=== PATIENT | male | born 1965 | race African-American/Black ===

== ENCOUNTER 2022-05-07 21:02 | Inpatient (IN) | payer BC, MEDICARE ==
[~2022-05-07] VITALS: Ht 182.9 cm; Wt 89.8 kg
[~2022-05-07 21:02] MED LIST: ATOR40TA70 MT; DEXT1CAP3 MT; ESCI5SOL2 MT; FELO10TA45 MT; LISI20TA31 MT; TAMS0.4C31 MT
[2022-05-07] MEDS ORDERED: CEFTRIAXONE 1 G PREMIX 50 ML IV NR (22:00)
[2022-05-07] MEDS ORDERED: METRONIDAZOLE 500 MG PREMIX 100 ML IV ONE (23:15)
[2022-05-07] MEDS: DOXYCYCLINE 100 MG in DEXT 5% WATER 100 ML IV SCH (23:45)
[2022-05-08] VITALS (16 sets, daily range): BP systolic 85–153; BP diastolic 60–123
[2022-05-08] MEDS ORDERED: ROCURONIUM BROMIDE 10MG/ML VIAL 5ML IV ONE
[2022-05-08] MEDS ORDERED: PROPOFOL 10MG/ML 100ML 100 ML IV ONE
[2022-05-08] MEDS ORDERED: FENTANYL 2500MCG/250ML PMX 250 ML IV ONE
[2022-05-08] MEDS ORDERED: KETAMINE HCL 50 MG/ML 10ML IV ONE
[2022-05-08] MEDS: KETAMINE HCL 50 MG/ML 10ML IV NR ×2 (00:02→01:13)
[2022-05-08] MEDS ORDERED: FENTANYL 2500MCG/250ML PMX 250 ML IV NR (00:15)
[2022-05-08] MEDS ORDERED: PROPOFOL 10MG/ML 100ML 100 ML IV NR ×2 (00:15)
[2022-05-08 00:19] LABS: HEMATOCRIT. 46.4 % (42.0-52.0); HEMOGLOBIN. 14.9 g/dL (14.0-18.0); MEAN CORPUSCULAR HEMOGLOBIN 27.3 pg (28.0-32.0); MEAN CORPUSCULAR VOLUME 85.3 fL (80.0-94.0); MEAN PLATELET VOLUME 7.3 fl (7.4-10.4); PLATELET 385 x1000/uL (130-400); RED BLOOD CELL COUNT 5.44 mill/uL (4.7-6.1); RED CELL DISTRIBUTION WIDTH 14.2 % (11.6-14.6)
[2022-05-08 00:34] LABS: CHLORIDE 105 mEq/L (98-107)
[2022-05-08] MEDS: DOXYCYCLINE 100 MG in DEXT 5% WATER 100 ML IV SCH ×2 (01:45→03:00)
[2022-05-08 02:41] LABS: BG BASE EXCESS -3.2 mmol/L (-2.0-2.0); BG CARBOXYHEMOGLOBIN 0.5 % (0.5-1.5); BG DEOXYHEMOGLOBIN 0.6 % (0.0-5.0); BG FRACTION INSPIRED OXYGEN 70; BG HCO3 ACT 20.9 mmol/L (22.0-26.0); BG METHEMOGLOBIN 0.4 % (0.0-1.5); BG OXYGEN SATURATION 99.4 % (92.0-98.5); BG OXYHEMOGLOBIN 98.5 % (94.0-97.0); BG PCO2 34.8 mmHg (35.0-45.0); BG PH 7.396 (7.350-7.450); BG PO2 214.6 mmHg (75.0-100.0); BG SAMPLE SITE RIGHT RADIAL; BG TOTAL HEMOGLOBIN 15.6 g/dL (12.0-18.0); BG VENT MODE VENT - AC
[2022-05-08 04:14] LABS: PLATELET ESTIMATE NORMAL
[2022-05-08] MEDS ORDERED: IOHEXOL-350 100 ML BOTTLE ONE (09:25)
[2022-05-08] MEDS: IPRATROPIUM/ALBUTEROL 0.5-3(2.5)MG/3ML NEB HHN SCH ×2 (11:38→20:41)
[2022-05-08] MEDS ORDERED: PIPERACILLIN/TAZ 3.375G PREMIX 50 ML IV SCH (12:00)
[2022-05-08] MEDS: ASPIRIN 81MG TABLET PO SCH (12:31)
[2022-05-08] MEDS: PANTOPRAZOLE SODIUM 40 MG/VIAL IV SCH (12:31)
[2022-05-08 12:42] LABS: CLARITY URINE CLEAR (CLEAR); COLOR URINE DARK YELLOW (YELLOW); KETONES URINE 1+ (NEGATIVE); LEUKOCYTE ESTERASE URINE NEGATIVE (NEGATIVE); NITRITE URINE NEGATIVE (NEGATIVE); OCCULT BLOOD URINE 2+ (NEGATIVE); PH URINE 5.5 (4.5-8.0); PROTEIN URINE 2+ (NEGATIVE); SPECIFIC GRAVITY URINE 1.026 (1.005-1.030)
[2022-05-08 13:04] LABS: *AMPHETAMINES SCREEN URINE NEGATIVE (NEGATIVE); *BARBITURATES SCREEN URINE NEGATIVE (NEGATIVE); *BENZODIAZEPINES SCREEN URINE NEGATIVE (NEGATIVE); *COCAINE SCREEN URINE NEGATIVE (NEGATIVE); CANNABINOID URINE SCREEN NEGATIVE (NEGATIVE); METHADONE URINE SCREEN NEGATIVE (NEGATIVE); OPIATES URINE SCREEN NEGATIVE (NEGATIVE); PHENCYCLIDINE URINE SCREEN NEGATIVE (NEGATIVE)
[2022-05-08] MEDS ORDERED: PROPOFOL 10MG/ML 100ML 100 ML IV PRN (15:30)
[2022-05-08] MEDS ORDERED: FENTANYL 2500MCG/250ML PMX 250 ML IV PRN (15:30)
[2022-05-08] MEDS ORDERED: KCL 20MEQ/100ML PREMIX 100 ML IV NR (16:00)
[2022-05-08] MEDS ORDERED: MIDODRINE HCL 5MG TABLET PO SCH (17:00)
[2022-05-08 18:26] LABS: BG BASE EXCESS -3.7 mmol/L (-2.0-2.0); BG CARBOXYHEMOGLOBIN 0.4 % (0.5-1.5); BG FRACTION INSPIRED OXYGEN 40; BG HCO3 ACT 20.6 mmol/L (22.0-26.0); BG METHEMOGLOBIN 0.3 % (0.0-1.5); BG OXYHEMOGLOBIN 97.3 % (94.0-97.0); BG PCO2 35.3 mmHg (35.0-45.0); BG PH 7.385 (7.350-7.450); BG PO2 105.1 mmHg (75.0-100.0); BG SAMPLE SITE RIGHT RADIAL; BG TOTAL HEMOGLOBIN 13.5 g/dL (12.0-18.0); BG VENT MODE VENT - AC
[2022-05-09] VITALS (74 sets, daily range): BP systolic 91–177; BP diastolic 64–126
[2022-05-09] MEDS: PIPERACILLIN/TAZOBACTAM 3.375G in DEXT 5% WATER 50ML IV SCH ×4 (04:40→21:42)
[2022-05-09] MEDS: MIDODRINE HCL 5MG TABLET PO SCH ×4 (04:41→17:00)
[2022-05-09 05:40] LABS: BASOPHILS % 0.3 % (0.0-2.0); EOSINOPHILS % 0.5 % (0.0-5.0); HEMATOCRIT. 37.7 % (42.0-52.0); HEMOGLOBIN. 12.4 g/dL (14.0-18.0); LYMPHOCYTES % 7.9 % (20.0-50.0); MEAN CORPUSCULAR HEMOGLOBIN 27.9 pg (28.0-32.0); MEAN CORPUSCULAR VOLUME 84.6 fL (80.0-94.0); MEAN PLATELET VOLUME 7.3 fl (7.4-10.4); MONOCYTES % 3.4 % (2.0-8.0); NEUTROPHILS % 87.9 % (40.0-76.0); PLATELET 270 x1000/uL (130-400); RED BLOOD CELL COUNT 4.45 mill/uL (4.7-6.1); RED CELL DISTRIBUTION WIDTH 14.4 % (11.6-14.6)
[2022-05-09] MEDS ORDERED: ASPI-1497 PO (07:23)
[2022-05-09] MEDS ORDERED: PROPOFOL 10MG/ML 100ML 100 ML IV PRN ×2 (07:36→12:30)
[2022-05-09] MEDS: PANTOPRAZOLE SODIUM 40 MG/VIAL IV SCH (08:18)
[2022-05-09] MEDS: ASPIRIN 81MG TABLET PO SCH (08:18)
[2022-05-09] MEDS: IPRATROPIUM/ALBUTEROL 0.5-3(2.5)MG/3ML NEB HHN SCH ×4 (08:23→20:40)
[2022-05-09 08:48] LABS: BG BASE EXCESS -3.8 mmol/L (-2.0-2.0); BG CARBOXYHEMOGLOBIN 0.3 % (0.5-1.5); BG DEOXYHEMOGLOBIN 1.4 % (0.0-5.0); BG FRACTION INSPIRED OXYGEN 40; BG HCO3 ACT 21.8 mmol/L (22.0-26.0); BG METHEMOGLOBIN 0.4 % (0.0-1.5); BG OXYGEN SATURATION 98.6 % (92.0-98.5); BG OXYHEMOGLOBIN 97.9 % (94.0-97.0); BG PCO2 41.4 mmHg (35.0-45.0); BG PH 7.339 (7.350-7.450); BG PO2 137.8 mmHg (75.0-100.0); BG SAMPLE SITE RIGHT RADIAL; BG TOTAL HEMOGLOBIN 13.1 g/dL (12.0-18.0); BG VENT MODE VENT - AC
[2022-05-09] MEDS: SODIUM CHLORIDE 0.45% 1,000 ML IV SCH ×2 (10:43→21:43)
[2022-05-09] MEDS: MIDAZOLAM HCL 5 MG/5 ML VIAL IV PRN (23:40)
[2022-05-10] VITALS (80 sets, daily range): BP systolic 114–159; BP diastolic 74–104
[2022-05-10] MEDS: IPRATROPIUM/ALBUTEROL 0.5-3(2.5)MG/3ML NEB HHN SCH ×4 (02:06→20:28)
[2022-05-10] MEDS: MIDAZOLAM HCL 5 MG/5 ML VIAL IV PRN ×2 (04:16→13:44)
[2022-05-10] MEDS: PIPERACILLIN/TAZOBACTAM 3.375G in DEXT 5% WATER 50ML IV SCH ×3 (05:07→22:14)
[2022-05-10 05:53] LABS: HEMATOCRIT. 36.3 % (42.0-52.0); MEAN CORPUSCULAR VOLUME 84.9 fL (80.0-94.0); MEAN PLATELET VOLUME 7.4 fl (7.4-10.4); PLATELET 241 x1000/uL (130-400); RED BLOOD CELL COUNT 4.27 mill/uL (4.7-6.1)
[2022-05-10 06:12] LABS: CHLORIDE 106 mEq/L (98-107)
[2022-05-10 07:24] LABS: BG BASE EXCESS -4.1 mmol/L (-2.0-2.0); BG CARBOXYHEMOGLOBIN 0.4 % (0.5-1.5); BG HCO3 ACT 20.9 mmol/L (22.0-26.0); BG METHEMOGLOBIN 0.4 % (0.0-1.5); BG OXYHEMOGLOBIN 98.2 % (94.0-97.0); BG PCO2 38.1 mmHg (35.0-45.0); BG PH 7.357 (7.350-7.450); BG PO2 153.2 mmHg (75.0-100.0); BG SAMPLE SITE RIGHT RADIAL; BG TOTAL HEMOGLOBIN 12.5 g/dL (12.0-18.0); BG VENT MODE VENT - AC
[2022-05-10] MEDS: MIDODRINE HCL 5MG TABLET PO SCH ×3 (09:00→17:00)
[2022-05-10 09:46] LABS: BG CARBOXYHEMOGLOBIN 0.1 % (0.5-1.5); BG DEOXYHEMOGLOBIN 1.2 % (0.0-5.0); BG HCO3 ACT 21.3 mmol/L (22.0-26.0); BG METHEMOGLOBIN 0.4 % (0.0-1.5); BG OXYGEN SATURATION 98.8 % (92.0-98.5); BG OXYHEMOGLOBIN 98.3 % (94.0-97.0); BG PCO2 39.7 mmHg (35.0-45.0); BG PH 7.347 (7.350-7.450); BG PO2 145.1 mmHg (75.0-100.0); BG SAMPLE SITE RIGHT RADIAL; BG TOTAL HEMOGLOBIN 12.1 g/dL (12.0-18.0); BG VENT MODE VENT - CPAP
[2022-05-10] MEDS: ASPIRIN 81MG TABLET PO SCH (09:52)
[2022-05-10] MEDS: PANTOPRAZOLE SODIUM 40 MG/VIAL IV SCH (09:52)
[2022-05-10] MEDS: SODIUM CHLORIDE 0.45% 1,000 ML IV SCH (10:20)
[2022-05-10 11:55] LABS: PLATELET ESTIMATE NORMAL
[2022-05-11] VITALS (50 sets, daily range): BP systolic 116–180; BP diastolic 78–137
[2022-05-11] MEDS: SODIUM CHLORIDE 0.45% 1,000 ML IV SCH ×2 (01:31→14:50)
[2022-05-11] MEDS: IPRATROPIUM/ALBUTEROL 0.5-3(2.5)MG/3ML NEB HHN SCH ×4 (02:20→20:09)
[2022-05-11 06:45] LABS: BASOPHILS % 0.4 % (0.0-2.0); EOSINOPHILS % 0.9 % (0.0-5.0); HEMATOCRIT. 35.5 % (42.0-52.0); HEMOGLOBIN. 11.6 g/dL (14.0-18.0); LYMPHOCYTES % 9.1 % (20.0-50.0); MEAN CORPUSCULAR HEMOGLOBIN 27.7 pg (28.0-32.0); MEAN CORPUSCULAR VOLUME 84.8 fL (80.0-94.0); MEAN PLATELET VOLUME 7.4 fl (7.4-10.4); MONOCYTES % 4.7 % (2.0-8.0); NEUTROPHILS % 84.9 % (40.0-76.0); PLATELET 237 x1000/uL (130-400); RED BLOOD CELL COUNT 4.18 mill/uL (4.7-6.1); RED CELL DISTRIBUTION WIDTH 14.3 % (11.6-14.6)
[2022-05-11 07:24] LABS: CHLORIDE 103 mEq/L (98-107)
[2022-05-11 08:49] LABS: BG CARBOXYHEMOGLOBIN 0.3 % (0.5-1.5); BG FRACTION INSPIRED OXYGEN 40; BG METHEMOGLOBIN 0.3 % (0.0-1.5); BG OXYHEMOGLOBIN 98.4 % (94.0-97.0); BG PCO2 40.5 mmHg (35.0-45.0); BG PH 7.373 (7.350-7.450); BG PO2 171.3 mmHg (75.0-100.0); BG SAMPLE SITE RIGHT RADIAL; BG TOTAL HEMOGLOBIN 12.3 g/dL (12.0-18.0); BG VENT MODE VENT - AC
[2022-05-11] MEDS: MIDODRINE HCL 5MG TABLET PO SCH ×3 (09:00→17:00)
[2022-05-11] MEDS: PANTOPRAZOLE SODIUM 40 MG/VIAL IV SCH (09:02)
[2022-05-11] MEDS: ASPIRIN 81MG TABLET PO SCH (09:02)
[2022-05-11] MEDS: PIPERACILLIN/TAZOBACTAM 3.375G in DEXT 5% WATER 50ML IV SCH ×3 (09:02→21:38)
[2022-05-11] MEDS ORDERED: MAGNESIUM 1 G PREMIX 100 ML IV ONE (09:30)
[2022-05-11 11:29] LABS: BG BASE EXCESS -1.4 mmol/L (-2.0-2.0); BG CARBOXYHEMOGLOBIN 0.2 % (0.5-1.5); BG DEOXYHEMOGLOBIN 0.9 % (0.0-5.0); BG FRACTION INSPIRED OXYGEN 40; BG HCO3 ACT 23.4 mmol/L (22.0-26.0); BG METHEMOGLOBIN 0.4 % (0.0-1.5); BG OXYGEN SATURATION 99.1 % (92.0-98.5); BG OXYHEMOGLOBIN 98.5 % (94.0-97.0); BG PCO2 39.7 mmHg (35.0-45.0); BG PH 7.389 (7.350-7.450); BG PO2 169.8 mmHg (75.0-100.0); BG SAMPLE SITE RIGHT RADIAL; BG TOTAL HEMOGLOBIN 12.2 g/dL (12.0-18.0); BG VENT MODE VENT - CPAP
[2022-05-11] MEDS ORDERED: RACEPINEPHRINE 2.25% 0.5ML NEB VIAL HHN NR (14:30)
[2022-05-11] MEDS: METHYLPREDNISOLONE SOD SUCC 40 MG/ML VIAL IV SCH ×2 (14:43→21:37)
[2022-05-11] MEDS: DEXT 5%/0.45% NACL 1000ML 1,000 ML IV SCH (21:02)
[2022-05-11] MEDS: MIDAZOLAM HCL 5 MG/5 ML VIAL IV PRN (21:23)
[2022-05-12] VITALS (66 sets, daily range): BP systolic 99–207; BP diastolic 66–182
[2022-05-12 01:56] LABS: BG CARBOXYHEMOGLOBIN 0.2 % (0.5-1.5); BG FRACTION INSPIRED OXYGEN 410; BG HCO3 ACT 20.5 mmol/L (22.0-26.0); BG METHEMOGLOBIN 0.4 % (0.0-1.5); BG OXYHEMOGLOBIN 98.4 % (94.0-97.0); BG PCO2 39.9 mmHg (35.0-45.0); BG PH 7.329 (7.350-7.450); BG PO2 158.6 mmHg (75.0-100.0); BG TOTAL HEMOGLOBIN 13.6 g/dL (12.0-18.0); BG VENT MODE MASK - BIPAP
[2022-05-12] MEDS: MIDAZOLAM HCL 5 MG/5 ML VIAL IV PRN ×3 (02:09→07:46)
[2022-05-12] MEDS: IPRATROPIUM/ALBUTEROL 0.5-3(2.5)MG/3ML NEB HHN SCH ×4 (02:10→20:41)
[2022-05-12] MEDS: HYDRALAZINE 20MG/ML VIAL IV PRN ×2 (03:28→12:41)
[2022-05-12] MEDS: METHYLPREDNISOLONE SOD SUCC 40 MG/ML VIAL IV SCH ×3 (05:35→21:37)
[2022-05-12 05:36] LABS: HEMATOCRIT. 38.5 % (42.0-52.0); HEMOGLOBIN. 12.7 g/dL (14.0-18.0); MEAN CORPUSCULAR HEMOGLOBIN 27.5 pg (28.0-32.0); MEAN CORPUSCULAR VOLUME 83.6 fL (80.0-94.0); MEAN PLATELET VOLUME 7.4 fl (7.4-10.4); PLATELET 348 x1000/uL (130-400); RED CELL DISTRIBUTION WIDTH 14.1 % (11.6-14.6)
[2022-05-12] MEDS: PIPERACILLIN/TAZOBACTAM 3.375G in DEXT 5% WATER 50ML IV SCH ×3 (05:36→21:37)
[2022-05-12 05:46] LABS: CHLORIDE 103 mEq/L (98-107)
[2022-05-12] MEDS: ASPIRIN 81MG TABLET PO SCH ×2 (09:00→10:13)
[2022-05-12] MEDS ORDERED: ETOMIDATE 2MG/ML 10ML VIAL IV ONE (09:55)
[2022-05-12] MEDS ORDERED: SUCCINYLCHOLINE CHLORIDE 200MG/10ML IV ONE (09:55)
[2022-05-12] MEDS: PANTOPRAZOLE SODIUM 40 MG/VIAL IV SCH (10:13)
[2022-05-12] MEDS: DEXT 5%/0.45% NACL 1000ML 1,000 ML IV SCH (10:14)
[2022-05-12] MEDS ORDERED: METOPROLOL TARTRATE 5MG/5ML VIAL IV PRN ×2 (11:15→15:00)
[2022-05-12 11:23] LABS: BG BASE EXCESS -1.9 mmol/L (-2.0-2.0); BG DEOXYHEMOGLOBIN 0.8 % (0.0-5.0); BG FRACTION INSPIRED OXYGEN 40; BG HCO3 ACT 22.9 mmol/L (22.0-26.0); BG METHEMOGLOBIN 0.2 % (0.0-1.5); BG OXYGEN SATURATION 99.2 % (92.0-98.5); BG PCO2 39.3 mmHg (35.0-45.0); BG PH 7.384 (7.350-7.450); BG PO2 176.7 mmHg (75.0-100.0); BG SAMPLE SITE RIGHT RADIAL; BG TOTAL HEMOGLOBIN 13.4 g/dL (12.0-18.0); BG TOTAL RESPIRATORY RATE 55 b/min; BG VENT MODE VENT - AC
[2022-05-12 12:30] LABS: PLATELET ESTIMATE NORMAL
[2022-05-12] MEDS ORDERED: METOPROLOL TARTRATE 50MG TABLET PO NR (13:30)
[2022-05-12] MEDS: RISPERIDONE 1MG TABLET PO SCH (16:00)
[2022-05-12] MEDS ORDERED: PROPOFOL 10MG/ML 100ML 100 ML IV PRN (16:00)
[2022-05-12] MEDS: FENTANYL 2500MCG/250ML PMX 250 ML IV PRN (16:03)
[2022-05-12 17:42] LABS: BG CARBOXYHEMOGLOBIN 0.3 % (0.5-1.5); BG DEOXYHEMOGLOBIN 0.3 % (0.0-5.0); BG FRACTION INSPIRED OXYGEN 100; BG HCO3 ACT 23.6 mmol/L (22.0-26.0); BG METHEMOGLOBIN 0.3 % (0.0-1.5); BG OXYGEN SATURATION 99.7 % (92.0-98.5); BG OXYHEMOGLOBIN 99.1 % (94.0-97.0); BG PCO2 43.2 mmHg (35.0-45.0); BG PH 7.355 (7.350-7.450); BG PO2 498.7 mmHg (75.0-100.0); BG SAMPLE SITE LEFT RADIAL; BG TOTAL HEMOGLOBIN 13.4 g/dL (12.0-18.0); BG VENT MODE VENT - AC
[2022-05-12] MEDS: MIDAZOLAM 100MG/100ML PMX 100 ML IV PRN (19:55)
[2022-05-12] MEDS ORDERED: METOPROLOL TARTRATE 50MG TABLET PO SCH (21:00)
[2022-05-13] VITALS (93 sets, daily range): BP systolic 88–139; BP diastolic 52–98
[2022-05-13] MEDS: DEXT 5%/0.45% NACL 1000ML 1,000 ML IV SCH ×2 (00:13→12:10)
[2022-05-13] MEDS: IPRATROPIUM/ALBUTEROL 0.5-3(2.5)MG/3ML NEB HHN SCH ×4 (01:22→20:33)
[2022-05-13 06:05] LABS: HEMATOCRIT. 35.2 % (42.0-52.0); HEMOGLOBIN. 11.7 g/dL (14.0-18.0); MEAN CORPUSCULAR HEMOGLOBIN 27.7 pg (28.0-32.0); MEAN CORPUSCULAR VOLUME 83.2 fL (80.0-94.0); MEAN PLATELET VOLUME 7.4 fl (7.4-10.4); PLATELET 262 x1000/uL (130-400); RED BLOOD CELL COUNT 4.23 mill/uL (4.7-6.1)
[2022-05-13] MEDS: METHYLPREDNISOLONE SOD SUCC 40 MG/ML VIAL IV SCH ×3 (06:06→21:25)
[2022-05-13] MEDS: PIPERACILLIN/TAZOBACTAM 3.375G in DEXT 5% WATER 50ML IV SCH ×3 (06:07→22:08)
[2022-05-13 06:42] LABS: CHLORIDE 105 mEq/L (98-107)
[2022-05-13] MEDS: FENTANYL 2500MCG/250ML PMX 250 ML IV PRN (07:31)
[2022-05-13 07:49] LABS: BG CARBOXYHEMOGLOBIN 0.2 % (0.5-1.5); BG DEOXYHEMOGLOBIN 1.9 % (0.0-5.0); BG FRACTION INSPIRED OXYGEN 35; BG HCO3 ACT 24.9 mmol/L (22.0-26.0); BG METHEMOGLOBIN 0.2 % (0.0-1.5); BG OXYGEN SATURATION 98.1 % (92.0-98.5); BG OXYHEMOGLOBIN 97.7 % (94.0-97.0); BG PCO2 41.6 mmHg (35.0-45.0); BG PH 7.395 (7.350-7.450); BG PO2 109.3 mmHg (75.0-100.0); BG SAMPLE SITE RIGHT RADIAL; BG TOTAL HEMOGLOBIN 12.7 g/dL (12.0-18.0); BG VENT MODE VENT - AC
[2022-05-13] MEDS ORDERED: LIDOCAINE HCL/PF 1% 10 MG/ML 5ML VIAL ONE (07:57)
[2022-05-13] MEDS: ASPIRIN 81MG TABLET PO SCH (09:30)
[2022-05-13] MEDS: RISPERIDONE 1MG TABLET PO SCH (09:30)
[2022-05-13] MEDS: PANTOPRAZOLE SODIUM 40 MG/VIAL IV SCH (09:31)
[2022-05-13 11:14] LABS: PLATELET ESTIMATE NORMAL
[2022-05-13] MEDS ORDERED: NOREPINEPHRINE 8 MG in DEXT 5% WATER 242 ML IV PRN (12:00)
[2022-05-13] MEDS: METOCLOPRAMIDE HCL 10MG/2ML VIAL IV SCH ×3 (12:10→23:26)
[2022-05-13] MEDS: MIDODRINE HCL 5MG TABLET PO SCH ×2 (12:12→17:55)
[2022-05-14] VITALS (71 sets, daily range): BP systolic 107–157; BP diastolic 69–110
[2022-05-14] MEDS: DEXT 5%/0.45% NACL 1000ML 1,000 ML IV SCH ×2 (01:20→14:40)
[2022-05-14] MEDS: IPRATROPIUM/ALBUTEROL 0.5-3(2.5)MG/3ML NEB HHN SCH ×4 (02:22→19:54)
[2022-05-14] MEDS: METHYLPREDNISOLONE SOD SUCC 40 MG/ML VIAL IV SCH ×3 (06:33→21:23)
[2022-05-14] MEDS: METOCLOPRAMIDE HCL 10MG/2ML VIAL IV SCH ×4 (06:33→23:46)
[2022-05-14 07:09] LABS: HEMATOCRIT. 37.4 % (42.0-52.0); HEMOGLOBIN. 12.2 g/dL (14.0-18.0); MEAN CORPUSCULAR HEMOGLOBIN 27.1 pg (28.0-32.0); MEAN CORPUSCULAR VOLUME 82.9 fL (80.0-94.0); MEAN PLATELET VOLUME 7.3 fl (7.4-10.4); PLATELET 305 x1000/uL (130-400); RED BLOOD CELL COUNT 4.51 mill/uL (4.7-6.1); RED CELL DISTRIBUTION WIDTH 13.9 % (11.6-14.6)
[2022-05-14 07:28] LABS: CHLORIDE 104 mEq/L (98-107)
[2022-05-14] MEDS: PANTOPRAZOLE SODIUM 40 MG/VIAL IV SCH (08:25)
[2022-05-14] MEDS: ASPIRIN 81MG TABLET PO SCH (08:25)
[2022-05-14] MEDS: MIDODRINE HCL 5MG TABLET PO SCH ×3 (08:25→17:34)
[2022-05-14 11:14] LABS: BG BASE EXCESS 1.9 mmol/L (-2.0-2.0); BG CARBOXYHEMOGLOBIN 0.3 % (0.5-1.5); BG DEOXYHEMOGLOBIN 1.1 % (0.0-5.0); BG FRACTION INSPIRED OXYGEN 35; BG HCO3 ACT 27.5 mmol/L (22.0-26.0); BG METHEMOGLOBIN 0.2 % (0.0-1.5); BG OXYGEN SATURATION 98.9 % (92.0-98.5); BG OXYHEMOGLOBIN 98.4 % (94.0-97.0); BG PCO2 46.8 mmHg (35.0-45.0); BG PH 7.387 (7.350-7.450); BG PO2 152.9 mmHg (75.0-100.0); BG SAMPLE SITE RIGHT RADIAL; BG TOTAL HEMOGLOBIN 12.7 g/dL (12.0-18.0); BG VENT MODE VENT - AC
[2022-05-14] MEDS: FENTANYL 2500MCG/250ML PMX 250 ML IV PRN (11:50)
[2022-05-14 14:54] LABS: PLATELET ESTIMATE NORMAL
[2022-05-14] MEDS: MIDAZOLAM 100MG/100ML PMX 100 ML IV PRN (17:34)
[2022-05-15] VITALS (45 sets, daily range): BP systolic 106–174; BP diastolic 70–117
[2022-05-15] MEDS: IPRATROPIUM/ALBUTEROL 0.5-3(2.5)MG/3ML NEB HHN SCH ×4 (01:47→19:56)
[2022-05-15] MEDS: DEXT 5%/0.45% NACL 1000ML 1,000 ML IV SCH ×2 (03:28→17:22)
[2022-05-15] MEDS: METOCLOPRAMIDE HCL 10MG/2ML VIAL IV SCH ×3 (07:13→17:21)
[2022-05-15] MEDS: METHYLPREDNISOLONE SOD SUCC 40 MG/ML VIAL IV SCH ×3 (07:13→21:34)
[2022-05-15] MEDS: PANTOPRAZOLE SODIUM 40 MG/VIAL IV SCH (08:59)
[2022-05-15] MEDS: MIDODRINE HCL 5MG TABLET PO SCH ×3 (08:59→17:21)
[2022-05-15] MEDS: ASPIRIN 81MG TABLET PO SCH (08:59)
[2022-05-15 16:39] LABS: HEMATOCRIT. 37.2 % (42.0-52.0); HEMOGLOBIN. 12.3 g/dL (14.0-18.0); MEAN CORPUSCULAR HEMOGLOBIN 27.7 pg (28.0-32.0); MEAN CORPUSCULAR VOLUME 83.5 fL (80.0-94.0); MEAN PLATELET VOLUME 7.2 fl (7.4-10.4); PLATELET 319 x1000/uL (130-400); RED BLOOD CELL COUNT 4.46 mill/uL (4.7-6.1); RED CELL DISTRIBUTION WIDTH 14.4 % (11.6-14.6)
[2022-05-15 16:56] LABS: CHLORIDE 104 mEq/L (98-107)
[2022-05-15 21:45] LABS: PLATELET ESTIMATE NORMAL
[2022-05-16] VITALS (32 sets, daily range): BP systolic 118–172; BP diastolic 58–124
[2022-05-16] MEDS: METOCLOPRAMIDE HCL 10MG/2ML VIAL IV SCH ×4 (00:18→18:50)
[2022-05-16] MEDS: IPRATROPIUM/ALBUTEROL 0.5-3(2.5)MG/3ML NEB HHN SCH ×4 (01:02→20:24)
[2022-05-16 05:42] LABS: HEMATOCRIT. 33.3 % (42.0-52.0); MEAN CORPUSCULAR HEMOGLOBIN 27.7 pg (28.0-32.0); MEAN CORPUSCULAR VOLUME 83.8 fL (80.0-94.0); MEAN PLATELET VOLUME 7.2 fl (7.4-10.4); PLATELET 285 x1000/uL (130-400); RED BLOOD CELL COUNT 3.98 mill/uL (4.7-6.1)
[2022-05-16] MEDS: METHYLPREDNISOLONE SOD SUCC 40 MG/ML VIAL IV SCH ×3 (06:02→21:17)
[2022-05-16 06:30] LABS: CHLORIDE 107 mEq/L (98-107)
[2022-05-16] MEDS: DEXT 5%/0.45% NACL 1000ML 1,000 ML IV SCH ×2 (06:40→21:29)
[2022-05-16 08:29] LABS: PLATELET ESTIMATE NORMAL
[2022-05-16] MEDS: PANTOPRAZOLE SODIUM 40 MG/VIAL IV SCH (09:28)
[2022-05-16] MEDS: ASPIRIN 81MG TABLET PO SCH (09:28)
[2022-05-16] MEDS: MIDODRINE HCL 5MG TABLET PO SCH ×3 (09:28→17:00)
[2022-05-16] MEDS: MIDAZOLAM HCL 100 MG in SODIUM CHLORIDE 0.9% 80 ML IV PRN (21:10)
[2022-05-16] MEDS: ACETAMINOPHEN 325MG TABLET PO PRN (21:18)
[2022-05-16] MEDS: HYDRALAZINE 20MG/ML VIAL IV PRN (21:18)
[2022-05-17] VITALS (32 sets, daily range): BP systolic 110–186; BP diastolic 64–122
[2022-05-17] MEDS: METOCLOPRAMIDE HCL 10MG/2ML VIAL IV SCH ×4 (00:29→18:30)
[2022-05-17] MEDS: IPRATROPIUM/ALBUTEROL 0.5-3(2.5)MG/3ML NEB HHN SCH ×4 (01:44→20:52)
[2022-05-17 06:16] LABS: HEMATOCRIT. 36.5 % (42.0-52.0); MEAN CORPUSCULAR HEMOGLOBIN 27.3 pg (28.0-32.0); MEAN CORPUSCULAR VOLUME 83.3 fL (80.0-94.0); PLATELET 333 x1000/uL (130-400); RED BLOOD CELL COUNT 4.38 mill/uL (4.7-6.1)
[2022-05-17] MEDS: METHYLPREDNISOLONE SOD SUCC 40 MG/ML VIAL IV SCH ×3 (06:30→21:15)
[2022-05-17] MEDS: HYDRALAZINE 20MG/ML VIAL IV PRN ×2 (06:31→16:18)
[2022-05-17] MEDS: ACETAMINOPHEN 325MG TABLET PO PRN (06:32)
[2022-05-17 06:50] LABS: CHLORIDE 103 mEq/L (98-107)
[2022-05-17] MEDS: MIDODRINE HCL 5MG TABLET PO SCH (09:00)
[2022-05-17] MEDS: ASPIRIN 81MG TABLET PO SCH (09:00)
[2022-05-17] MEDS: PANTOPRAZOLE SODIUM 40 MG/VIAL IV SCH (09:24)
[2022-05-17] MEDS: DEXT 5%/0.45% NACL 1000ML 1,000 ML IV SCH ×2 (09:25→22:23)
[2022-05-17 10:56] LABS: PLATELET ESTIMATE NORMAL
[2022-05-17] MEDS: MORPHINE SULFATE 2 MG/ML CPJ (NOT FOR IM USE) IV PRN ×2 (12:07→16:40)
[2022-05-17] MEDS ORDERED: METOPROLOL TARTRATE 25MG TABLET PO SCH (21:00)
[2022-05-17] MEDS: MIDAZOLAM HCL 100 MG in SODIUM CHLORIDE 0.9% 80 ML IV PRN (21:16)
[2022-05-18] VITALS (47 sets, daily range): BP systolic 103–204; BP diastolic 58–139
[2022-05-18] MEDS: METOCLOPRAMIDE HCL 10MG/2ML VIAL IV SCH ×4 (00:56→18:33)
[2022-05-18] MEDS: IPRATROPIUM/ALBUTEROL 0.5-3(2.5)MG/3ML NEB HHN SCH ×4 (01:27→20:29)
[2022-05-18] MEDS: METOPROLOL TARTRATE 5MG/5ML VIAL IV PRN ×3 (03:09→19:53)
[2022-05-18] MEDS: CLONIDINE 0.1MG TABLET PO PRN (03:38)
[2022-05-18] MEDS ORDERED: NICARDIPINE 40MG/200ML PREMIX 200 ML IV PRN (04:30)
[2022-05-18] MEDS: METHYLPREDNISOLONE SOD SUCC 40 MG/ML VIAL IV SCH (05:07)
[2022-05-18 05:36] LABS: HEMATOCRIT. 37.9 % (42.0-52.0); HEMOGLOBIN. 12.5 g/dL (14.0-18.0); MEAN CORPUSCULAR HEMOGLOBIN 27.4 pg (28.0-32.0); MEAN CORPUSCULAR VOLUME 83.3 fL (80.0-94.0); PLATELET 401 x1000/uL (130-400); RED BLOOD CELL COUNT 4.55 mill/uL (4.7-6.1); RED CELL DISTRIBUTION WIDTH 13.7 % (11.6-14.6)
[2022-05-18 05:37] LABS: INR 1.2; PROTHROMBIN TIME 12.6 sec (9.6-11.0)
[2022-05-18 06:01] LABS: CHLORIDE 103 mEq/L (98-107)
[2022-05-18] MEDS: ASPIRIN 81MG TABLET PO SCH (08:39)
[2022-05-18] MEDS: METOPROLOL TARTRATE 50MG TABLET PO SCH ×2 (08:40→20:58)
[2022-05-18] MEDS: PANTOPRAZOLE SODIUM 40 MG/VIAL IV SCH (08:40)
[2022-05-18] MEDS: LOSARTAN POTASSIUM 100 MG TABLET PO SCH (11:00)
[2022-05-18 11:34] LABS: BG BASE EXCESS 5.5 mmol/L (-2.0-2.0); BG CARBOXYHEMOGLOBIN 0.6 % (0.5-1.5); BG DEOXYHEMOGLOBIN 5.9 % (0.0-5.0); BG FRACTION INSPIRED OXYGEN 30; BG HCO3 ACT 29.3 mmol/L (22.0-26.0); BG METHEMOGLOBIN 0.4 % (0.0-1.5); BG OXYHEMOGLOBIN 93.1 % (94.0-97.0); BG PCO2 40.1 mmHg (35.0-45.0); BG PH 7.482 (7.350-7.450); BG PO2 65.2 mmHg (75.0-100.0); BG SAMPLE SITE RIGHT RADIAL; BG TOTAL HEMOGLOBIN 13.7 g/dL (12.0-18.0); BG VENT MODE VENT - AC
[2022-05-18] MEDS ORDERED: PREDNISONE 20MG TABLET PO NR (12:00)
[2022-05-18] MEDS: DEXT 5%/0.45% NACL 1000ML 1,000 ML IV SCH (12:00)
[2022-05-18 14:44] LABS: PLATELET ESTIMATE INCREASED
[2022-05-18] MEDS: QUETIAPINE FUMARATE 25MG TABLET PO SCH (20:58)
[2022-05-19] VITALS (37 sets, daily range): BP systolic 90–203; BP diastolic 54–116
[2022-05-19] MEDS: METOCLOPRAMIDE HCL 10MG/2ML VIAL IV SCH ×4 (00:07→23:24)
[2022-05-19] MEDS: HYDRALAZINE 20MG/ML VIAL IV PRN ×2 (00:46→21:44)
[2022-05-19] MEDS: DEXT 5%/0.45% NACL 1000ML 1,000 ML IV SCH ×2 (01:27→14:40)
[2022-05-19] MEDS: IPRATROPIUM/ALBUTEROL 0.5-3(2.5)MG/3ML NEB HHN SCH ×4 (02:18→20:58)
[2022-05-19 05:24] LABS: BASOPHILS % 0.2 % (0.0-2.0); HEMATOCRIT. 39.8 % (42.0-52.0); HEMOGLOBIN. 12.8 g/dL (14.0-18.0); LYMPHOCYTES % 5.3 % (20.0-50.0); MEAN CORPUSCULAR HEMOGLOBIN 27.4 pg (28.0-32.0); MEAN PLATELET VOLUME 7.1 fl (7.4-10.4); MONOCYTES % 4.8 % (2.0-8.0); NEUTROPHILS % 89.7 % (40.0-76.0); PLATELET 317 x1000/uL (130-400); RED BLOOD CELL COUNT 4.69 mill/uL (4.7-6.1); RED CELL DISTRIBUTION WIDTH 14.4 % (11.6-14.6)
[2022-05-19 05:40] LABS: CHLORIDE 106 mEq/L (98-107)
[2022-05-19] MEDS: ASPIRIN 81MG TABLET PO SCH (08:36)
[2022-05-19] MEDS: QUETIAPINE FUMARATE 25MG TABLET PO SCH ×2 (08:36→20:26)
[2022-05-19] MEDS: LOSARTAN POTASSIUM 100 MG TABLET PO SCH (08:37)
[2022-05-19] MEDS: METOPROLOL TARTRATE 50MG TABLET PO SCH ×2 (08:49→20:26)
[2022-05-19] MEDS: PANTOPRAZOLE SODIUM 40 MG/VIAL IV SCH (08:53)
[2022-05-19] MEDS: ACETAMINOPHEN 325MG TABLET PO PRN (22:04)
[2022-05-19] MEDS: MORPHINE SULFATE 2 MG/ML CPJ (NOT FOR IM USE) IV PRN (23:20)
[2022-05-20] VITALS (32 sets, daily range): BP systolic 86–189; BP diastolic 46–110
[2022-05-20] MEDS: IPRATROPIUM/ALBUTEROL 0.5-3(2.5)MG/3ML NEB HHN SCH ×4 (02:38→20:57)
[2022-05-20] MEDS: METOPROLOL TARTRATE 5MG/5ML VIAL IV PRN (02:55)
[2022-05-20] MEDS: MORPHINE SULFATE 2 MG/ML CPJ (NOT FOR IM USE) IV PRN ×3 (03:51→21:56)
[2022-05-20] MEDS: DEXT 5%/0.45% NACL 1000ML 1,000 ML IV SCH ×2 (03:57→17:27)
[2022-05-20] MEDS: METOCLOPRAMIDE HCL 10MG/2ML VIAL IV SCH ×3 (05:20→17:40)
[2022-05-20 05:48] LABS: HEMATOCRIT. 36.7 % (42.0-52.0); HEMOGLOBIN. 11.8 g/dL (14.0-18.0); MEAN CORPUSCULAR HEMOGLOBIN 27.1 pg (28.0-32.0); MEAN CORPUSCULAR VOLUME 84.1 fL (80.0-94.0); MEAN PLATELET VOLUME 6.8 fl (7.4-10.4); PLATELET 313 x1000/uL (130-400); RED BLOOD CELL COUNT 4.36 mill/uL (4.7-6.1); RED CELL DISTRIBUTION WIDTH 14.3 % (11.6-14.6)
[2022-05-20 06:02] LABS: CHLORIDE 106 mEq/L (98-107)
[2022-05-20 08:26] LABS: PLATELET ESTIMATE NORMAL
[2022-05-20] MEDS: METOPROLOL TARTRATE 50MG TABLET PO SCH ×2 (09:27→21:52)
[2022-05-20] MEDS: QUETIAPINE FUMARATE 25MG TABLET PO SCH ×2 (09:27→21:52)
[2022-05-20] MEDS: PANTOPRAZOLE SODIUM 40 MG/VIAL IV SCH (09:28)
[2022-05-20] MEDS: ASPIRIN 81MG TABLET PO SCH (09:28)
[2022-05-20] MEDS: LOSARTAN POTASSIUM 100 MG TABLET PO SCH (09:28)
[2022-05-20] MEDS ORDERED: LIDOCAINE HCL/EPINEPHRINE 1%-EPI 1:100,000 20 ML VIAL ONE (11:58)
[2022-05-20] MEDS ORDERED: ROCURONIUM BROMIDE 10MG/ML VIAL 5ML IV ONE (12:08)
[2022-05-20] MEDS ORDERED: SODIUM CHLORIDE 0.9% 10ML VIAL ONE (12:09)
[2022-05-20] MEDS ORDERED: PHENYLEPHRINE HCL 10 MG/ML 1ML (IV VIAL) IV ONE (12:09)
[2022-05-20 16:26] LABS: CLARITY URINE CLEAR (CLEAR); COLOR URINE YELLOW (YELLOW); KETONES URINE TRACE (NEGATIVE); LEUKOCYTE ESTERASE URINE NEGATIVE (NEGATIVE); NITRITE URINE NEGATIVE (NEGATIVE); OCCULT BLOOD URINE NEGATIVE (NEGATIVE); PH URINE 6.5 (4.5-8.0); PROTEIN URINE TRACE (NEGATIVE); SPECIFIC GRAVITY URINE 1.015 (1.005-1.030)
[2022-05-21] VITALS (47 sets, daily range): BP systolic 99–165; BP diastolic 51–103
[2022-05-21] MEDS: METOCLOPRAMIDE HCL 10MG/2ML VIAL IV SCH ×5 (00:13→23:55)
[2022-05-21] MEDS: IPRATROPIUM/ALBUTEROL 0.5-3(2.5)MG/3ML NEB HHN SCH ×4 (02:52→21:00)
[2022-05-21 05:37] LABS: HEMATOCRIT. 38.1 % (42.0-52.0); HEMOGLOBIN. 12.2 g/dL (14.0-18.0); MEAN CORPUSCULAR VOLUME 84.4 fL (80.0-94.0); MEAN PLATELET VOLUME 7.4 fl (7.4-10.4); PLATELET 344 x1000/uL (130-400); RED BLOOD CELL COUNT 4.51 mill/uL (4.7-6.1); RED CELL DISTRIBUTION WIDTH 13.9 % (11.6-14.6)
[2022-05-21 06:08] LABS: CHLORIDE 109 mEq/L (98-107)
[2022-05-21] MEDS: DEXT 5%/0.45% NACL 1000ML 1,000 ML IV SCH ×2 (06:40→20:55)
[2022-05-21] MEDS: LOSARTAN POTASSIUM 100 MG TABLET PO SCH (08:55)
[2022-05-21] MEDS: PANTOPRAZOLE SODIUM 40 MG/VIAL IV SCH (08:55)
[2022-05-21] MEDS: METOPROLOL TARTRATE 50MG TABLET PO SCH ×2 (08:56→20:55)
[2022-05-21] MEDS: ASPIRIN 81MG TABLET PO SCH (08:56)
[2022-05-21] MEDS: QUETIAPINE FUMARATE 25MG TABLET PO SCH ×2 (08:56→20:54)
[2022-05-21 09:24] LABS: PLATELET ESTIMATE NORMAL
[2022-05-21] MEDS: MORPHINE SULFATE 2 MG/ML CPJ (NOT FOR IM USE) IV PRN (17:34)
[2022-05-21] MEDS: ONDANSETRON HCL 4MG/2ML INJ IV PRN (20:54)
[2022-05-22] VITALS (46 sets, daily range): BP systolic 107–218; BP diastolic 62–133
[2022-05-22] MEDS: METOCLOPRAMIDE HCL 10MG/2ML VIAL IV SCH ×3 (06:01→18:00)
[2022-05-22 06:26] LABS: CREATINE KINASE 409 IU/L (39-308)
[2022-05-22] MEDS: ASPIRIN 81MG TABLET PO SCH (09:00)
[2022-05-22] MEDS: IPRATROPIUM/ALBUTEROL 0.5-3(2.5)MG/3ML NEB HHN SCH ×4 (09:07→19:45)
[2022-05-22] MEDS: QUETIAPINE FUMARATE 25MG TABLET PO SCH ×2 (09:39→21:33)
[2022-05-22] MEDS: DEXT 5%/0.45% NACL 1000ML 1,000 ML IV SCH ×2 (09:39→23:15)
[2022-05-22] MEDS: LOSARTAN POTASSIUM 100 MG TABLET PO SCH (09:39)
[2022-05-22] MEDS: METOPROLOL TARTRATE 50MG TABLET PO SCH ×2 (09:39→21:34)
[2022-05-22] MEDS: PANTOPRAZOLE SODIUM 40 MG/VIAL IV SCH (09:40)
[2022-05-22 12:18] LABS: HEMATOCRIT. 36.7 % (42.0-52.0); MEAN CORPUSCULAR HEMOGLOBIN 27.3 pg (28.0-32.0); MEAN CORPUSCULAR VOLUME 83.9 fL (80.0-94.0); MEAN PLATELET VOLUME 6.9 fl (7.4-10.4); PLATELET 325 x1000/uL (130-400); RED BLOOD CELL COUNT 4.37 mill/uL (4.7-6.1); RED CELL DISTRIBUTION WIDTH 14.3 % (11.6-14.6)
[2022-05-22 12:25] LABS: CHLORIDE 110 mEq/L (98-107)
[2022-05-22 14:21] LABS: PLATELET ESTIMATE NORMAL
[2022-05-22] MEDS: ACETAMINOPHEN 325MG TABLET PO PRN (21:33)
[2022-05-22] MEDS: ONDANSETRON HCL 4MG/2ML INJ IV PRN (21:34)
[2022-05-23] VITALS (26 sets, daily range): BP systolic 120–189; BP diastolic 65–114
[2022-05-23] MEDS: METOCLOPRAMIDE HCL 10MG/2ML VIAL IV SCH ×5 (00:05→23:34)
[2022-05-23] MEDS: IPRATROPIUM/ALBUTEROL 0.5-3(2.5)MG/3ML NEB HHN SCH ×4 (00:21→22:27)
[2022-05-23 05:37] LABS: CHLORIDE 111 mEq/L (98-107); HEMATOCRIT. 35.2 % (42.0-52.0); HEMOGLOBIN. 11.2 g/dL (14.0-18.0); MEAN CORPUSCULAR VOLUME 84.8 fL (80.0-94.0); MEAN PLATELET VOLUME 7.2 fl (7.4-10.4); PLATELET 295 x1000/uL (130-400); RED BLOOD CELL COUNT 4.15 mill/uL (4.7-6.1); RED CELL DISTRIBUTION WIDTH 14.2 % (11.6-14.6)
[2022-05-23 05:56] LABS: INR 1.3; PROTHROMBIN TIME 13.3 sec (9.6-11.0)
[2022-05-23 07:50] LABS: PLATELET ESTIMATE NORMAL
[2022-05-23] MEDS: ASPIRIN 81MG TABLET PO SCH (09:00)
[2022-05-23] MEDS: KCL 20MEQ/100ML PREMIX 100 ML IV SCH ×2 (09:38→11:41)
[2022-05-23] MEDS: PANTOPRAZOLE SODIUM 40 MG/VIAL IV SCH (09:38)
[2022-05-23] MEDS: QUETIAPINE FUMARATE 25MG TABLET PO SCH ×2 (09:39→22:33)
[2022-05-23] MEDS: METOPROLOL TARTRATE 50MG TABLET PO SCH ×2 (09:39→20:35)
[2022-05-23] MEDS: LOSARTAN POTASSIUM 100 MG TABLET PO SCH (09:39)
[2022-05-23] MEDS: DEXT 5%/0.45% NACL 1000ML 1,000 ML IV SCH (12:00)
[2022-05-23] MEDS ORDERED: CEFAZOLIN 1000MG PREMIX 50 ML IV NR (13:00)
[2022-05-23] MEDS: PIPERACILLIN/TAZOBACTAM 3.375 G in DEXTROSE 5% WATER 50 ML IV SCH ×2 (14:08→21:58)
[2022-05-23] MEDS ORDERED: PNEUMOCOCCAL 23-VAL P-SAC VAC 0.5 ML IM ONE (15:30)
[2022-05-23] MEDS: ACETAMINOPHEN 325MG TABLET PO PRN (20:36)
[2022-05-23] MEDS: CLONIDINE 0.1MG TABLET PO PRN (23:06)
[2022-05-24] VITALS (12 sets, daily range): BP systolic 92–171; BP diastolic 58–109
[2022-05-24] MEDS: IPRATROPIUM/ALBUTEROL 0.5-3(2.5)MG/3ML NEB HHN SCH ×4 (01:42→20:11)
[2022-05-24] MEDS: ACETAMINOPHEN 325MG TABLET PO PRN ×2 (01:56→08:39)
[2022-05-24] MEDS: DEXT 5%/0.45% NACL 1000ML 1,000 ML IV SCH ×2 (01:56→14:28)
[2022-05-24 03:20] LABS: HEMATOCRIT. 35.4 % (42.0-52.0); HEMOGLOBIN. 11.4 g/dL (14.0-18.0); MEAN CORPUSCULAR HEMOGLOBIN 27.2 pg (28.0-32.0); MEAN CORPUSCULAR VOLUME 84.9 fL (80.0-94.0); MEAN PLATELET VOLUME 7.2 fl (7.4-10.4); PLATELET 341 x1000/uL (130-400); RED BLOOD CELL COUNT 4.17 mill/uL (4.7-6.1); RED CELL DISTRIBUTION WIDTH 14.2 % (11.6-14.6)
[2022-05-24 03:35] LABS: INR 1.2
[2022-05-24 03:38] LABS: CHLORIDE 111 mEq/L (98-107)
[2022-05-24] MEDS: PIPERACILLIN/TAZOBACTAM 3.375 G in DEXTROSE 5% WATER 50 ML IV SCH ×3 (06:13→21:04)
[2022-05-24] MEDS: HYDRALAZINE 20MG/ML VIAL IV PRN (06:14)
[2022-05-24] MEDS: METOCLOPRAMIDE HCL 10MG/2ML VIAL IV SCH ×3 (06:14→17:57)
[2022-05-24 07:46] LABS: PLATELET ESTIMATE NORMAL
[2022-05-24] MEDS: PANTOPRAZOLE SODIUM 40 MG/VIAL IV SCH (08:39)
[2022-05-24] MEDS: METOPROLOL TARTRATE 5MG/5ML VIAL IV PRN (08:39)
[2022-05-24] MEDS: CLONIDINE 0.1MG TABLET PO PRN (08:40)
[2022-05-24] MEDS: LOSARTAN POTASSIUM 100 MG TABLET PO SCH (09:00)
[2022-05-24] MEDS ORDERED: METOPROLOL TARTRATE 50MG TABLET PO SCH (09:10)
[2022-05-24] MEDS ORDERED: VANCOMYCIN 2,000 MG in DEXT 5% WATER 500 ML IV NR (17:00)
[2022-05-24] MEDS: CEFEPIME 1,000 MG in DEXTROSE 5% WATER 50 ML IV SCH (17:31)
[2022-05-24] MEDS: QUETIAPINE FUMARATE 50MG TABLET PO SCH (20:26)
[2022-05-24] MEDS: METOPROLOL TARTRATE 100MG TABLET PO SCH (20:27)
[2022-05-25] VITALS (12 sets, daily range): BP systolic 120–171; BP diastolic 67–100
[2022-05-25] MEDS: METOCLOPRAMIDE HCL 10MG/2ML VIAL IV SCH ×5 (00:14→23:46)
[2022-05-25 01:35] LABS: CLARITY URINE TURBID (CLEAR); COLOR URINE DARK YELLOW (YELLOW); KETONES URINE 2+ (NEGATIVE); LEUKOCYTE ESTERASE URINE TRACE (NEGATIVE); NITRITE URINE NEGATIVE (NEGATIVE); OCCULT BLOOD URINE 1+ (NEGATIVE); PH URINE 5.5 (4.5-8.0); PROTEIN URINE 2+ (NEGATIVE); SPECIFIC GRAVITY URINE 1.039 (1.005-1.030)
[2022-05-25] MEDS: IPRATROPIUM/ALBUTEROL 0.5-3(2.5)MG/3ML NEB HHN SCH ×4 (01:35→20:12)
[2022-05-25] MEDS: CEFEPIME 1,000 MG in DEXTROSE 5% WATER 50 ML IV SCH ×2 (03:49→17:41)
[2022-05-25] MEDS: DEXT 5%/0.45% NACL 1000ML 1,000 ML IV SCH ×2 (03:50→17:42)
[2022-05-25] MEDS: PIPERACILLIN/TAZOBACTAM 3.375 G in DEXTROSE 5% WATER 50 ML IV SCH ×2 (05:06→15:30)
[2022-05-25] MEDS: METOPROLOL TARTRATE 5MG/5ML VIAL IV PRN (06:13)
[2022-05-25 06:19] LABS: HEMATOCRIT. 31.2 % (42.0-52.0); HEMOGLOBIN. 10.3 g/dL (14.0-18.0); MEAN CORPUSCULAR HEMOGLOBIN 27.8 pg (28.0-32.0); MEAN PLATELET VOLUME 7.3 fl (7.4-10.4); PLATELET 312 x1000/uL (130-400); RED BLOOD CELL COUNT 3.71 mill/uL (4.7-6.1); RED CELL DISTRIBUTION WIDTH 14.3 % (11.6-14.6)
[2022-05-25] MEDS ORDERED: VANCOMYCIN 1250MG in DEXTROSE 5% WATER 250ML IV SCH (09:00)
[2022-05-25] MEDS ORDERED: POTASSIUM CHLORIDE INJ 40 MEQ in DEXT 5% WATER 250 ML IV ONE (09:15)
[2022-05-25] MEDS: QUETIAPINE FUMARATE 50MG TABLET PO SCH ×2 (10:38→21:16)
[2022-05-25] MEDS: METOPROLOL TARTRATE 100MG TABLET PO SCH ×2 (10:38→21:15)
[2022-05-25] MEDS: ASPIRIN 81MG TABLET PO SCH (10:38)
[2022-05-25] MEDS: PANTOPRAZOLE SODIUM 40 MG/VIAL IV SCH (10:39)
[2022-05-25] MEDS: ACETAMINOPHEN 325MG TABLET PO PRN ×2 (10:39→21:16)
[2022-05-25] MEDS: LOSARTAN POTASSIUM 100 MG TABLET PO SCH (10:39)
[2022-05-25] MEDS: KCL 20MEQ/100ML X 2 FOR TOTAL KCL 40MEQ/200ML IV SCH ×2 (12:09→15:30)
[2022-05-25] MEDS: VANCOMYCIN 1250MG in DEXTROSE 5% WATER 250ML IV SCH (12:10)
[2022-05-25 17:36] LABS: PLATELET ESTIMATE NORMAL
[2022-05-25] MEDS ORDERED: SODIUM CHLORIDE 0.9% 1,000 ML IV SCH (17:45)
[2022-05-26] VITALS (12 sets, daily range): BP systolic 138–168; BP diastolic 66–93
[2022-05-26] MEDS: IPRATROPIUM/ALBUTEROL 0.5-3(2.5)MG/3ML NEB HHN SCH ×4 (00:17→18:00)
[2022-05-26] MEDS: CEFEPIME 1,000 MG in DEXTROSE 5% WATER 50 ML IV SCH ×2 (03:13→16:03)
[2022-05-26] MEDS: HYDRALAZINE 20MG/ML VIAL IV PRN (03:17)
[2022-05-26] MEDS: METOCLOPRAMIDE HCL 10MG/2ML VIAL IV SCH ×4 (05:37→23:34)
[2022-05-26] MEDS: DEXT 5%/0.45% NACL 1000ML 1,000 ML IV SCH ×2 (05:37→20:28)
[2022-05-26] MEDS: VANCOMYCIN 1250MG in DEXTROSE 5% WATER 250ML IV SCH (05:38)
[2022-05-26 07:21] LABS: HEMATOCRIT. 33.3 % (42.0-52.0); HEMOGLOBIN. 10.9 g/dL (14.0-18.0); MEAN CORPUSCULAR HEMOGLOBIN 27.9 pg (28.0-32.0); MEAN PLATELET VOLUME 7.5 fl (7.4-10.4); PLATELET 285 x1000/uL (130-400); RED BLOOD CELL COUNT 3.92 mill/uL (4.7-6.1); RED CELL DISTRIBUTION WIDTH 14.4 % (11.6-14.6)
[2022-05-26 08:34] LABS: VANCOMYCIN TROUGH 35.9 ug/mL (5.0-10.0)
[2022-05-26] MEDS: LOSARTAN POTASSIUM 100 MG TABLET PO SCH (08:53)
[2022-05-26] MEDS: ASPIRIN 81MG TABLET PO SCH (08:53)
[2022-05-26] MEDS: QUETIAPINE FUMARATE 50MG TABLET PO SCH ×2 (08:53→20:26)
[2022-05-26] MEDS: METOPROLOL TARTRATE 100MG TABLET PO SCH ×2 (08:53→20:27)
[2022-05-26] MEDS: PANTOPRAZOLE SODIUM 40 MG/VIAL IV SCH (08:54)
[2022-05-26] MEDS: AMLODIPINE 5MG TABLET PO SCH ×2 (10:20→20:27)
[2022-05-26 11:18] LABS: PLATELET ESTIMATE NORMAL
[2022-05-27] VITALS (12 sets, daily range): BP systolic 125–162; BP diastolic 63–98
[2022-05-27] MEDS: CEFEPIME 1,000 MG in DEXTROSE 5% WATER 50 ML IV SCH ×2 (03:00→15:25)
[2022-05-27] MEDS: METOCLOPRAMIDE HCL 10MG/2ML VIAL IV SCH ×3 (05:00→17:32)
[2022-05-27 06:29] LABS: HEMATOCRIT. 31.4 % (42.0-52.0); HEMOGLOBIN. 10.4 g/dL (14.0-18.0); MEAN CORPUSCULAR HEMOGLOBIN 27.7 pg (28.0-32.0); MEAN CORPUSCULAR VOLUME 83.6 fL (80.0-94.0); MEAN PLATELET VOLUME 7.4 fl (7.4-10.4); PLATELET 269 x1000/uL (130-400); RED BLOOD CELL COUNT 3.75 mill/uL (4.7-6.1); RED CELL DISTRIBUTION WIDTH 14.5 % (11.6-14.6)
[2022-05-27 06:47] LABS: CHLORIDE 116 mEq/L (98-107)
[2022-05-27 06:55] LABS: PHOSPHORUS 2.5 mg/dL (2.5-4.9)
[2022-05-27 08:26] LABS: BG BASE EXCESS -0.3 mmol/L (-2.0-2.0); BG CARBOXYHEMOGLOBIN 0.3 % (0.5-1.5); BG DEOXYHEMOGLOBIN 1.5 % (0.0-5.0); BG FRACTION INSPIRED OXYGEN 30; BG HCO3 ACT 23.4 mmol/L (22.0-26.0); BG METHEMOGLOBIN 0.2 % (0.0-1.5); BG OXYGEN SATURATION 98.5 % (92.0-98.5); BG PCO2 34.8 mmHg (35.0-45.0); BG PH 7.445 (7.350-7.450); BG SAMPLE SITE RIGHT RADIAL; BG TOTAL HEMOGLOBIN 10.5 g/dL (12.0-18.0); BG VENT MODE VENT - AC
[2022-05-27] MEDS: PANTOPRAZOLE SODIUM 40 MG/VIAL IV SCH (08:31)
[2022-05-27] MEDS: AMLODIPINE 5MG TABLET PO SCH ×2 (08:32→20:48)
[2022-05-27] MEDS: ASPIRIN 81MG TABLET PO SCH (08:33)
[2022-05-27] MEDS: METOPROLOL TARTRATE 100MG TABLET PO SCH ×2 (08:33→20:47)
[2022-05-27] MEDS: QUETIAPINE FUMARATE 50MG TABLET PO SCH ×2 (08:33→20:48)
[2022-05-27] MEDS: DEXT 5%/0.45% NACL 1000ML 1,000 ML IV SCH ×2 (08:34→23:17)
[2022-05-27] MEDS: IPRATROPIUM/ALBUTEROL 0.5-3(2.5)MG/3ML NEB HHN SCH ×4 (08:57→20:43)
[2022-05-27] MEDS ORDERED: BISACODYL 10MG SUPP PR NR (11:30)
[2022-05-27] MEDS ORDERED: LACTULOSE 20G/30ML UDC PO PRN (11:30)
[2022-05-27 22:41] LABS: PLATELET ESTIMATE NORMAL
[2022-05-28] VITALS (12 sets, daily range): BP systolic 119–158; BP diastolic 59–141
[2022-05-28] MEDS: METOCLOPRAMIDE HCL 10MG/2ML VIAL IV SCH ×5 (00:49→23:58)
[2022-05-28] MEDS: IPRATROPIUM/ALBUTEROL 0.5-3(2.5)MG/3ML NEB HHN SCH ×4 (01:42→20:25)
[2022-05-28] MEDS: CEFEPIME 1,000 MG in DEXTROSE 5% WATER 50 ML IV SCH ×2 (04:46→15:14)
[2022-05-28 06:45] LABS: HEMATOCRIT. 28.1 % (42.0-52.0); HEMOGLOBIN. 9.2 g/dL (14.0-18.0); MEAN CORPUSCULAR HEMOGLOBIN 27.7 pg (28.0-32.0); MEAN CORPUSCULAR VOLUME 84.9 fL (80.0-94.0); MEAN PLATELET VOLUME 7.9 fl (7.4-10.4); PLATELET 216 x1000/uL (130-400); RED BLOOD CELL COUNT 3.31 mill/uL (4.7-6.1); RED CELL DISTRIBUTION WIDTH 14.9 % (11.6-14.6)
[2022-05-28] MEDS ORDERED: POTASSIUM CHLORIDE 20MEQ/PACKET GT NR (08:34)
[2022-05-28] MEDS: QUETIAPINE FUMARATE 50MG TABLET PO SCH ×2 (09:08→22:24)
[2022-05-28] MEDS: PANTOPRAZOLE SODIUM 40 MG/VIAL IV SCH (09:08)
[2022-05-28] MEDS: AMLODIPINE 5MG TABLET PO SCH ×2 (09:09→22:24)
[2022-05-28] MEDS: DOCUSATE SODIUM SUGAR FREE 100MG/10ML UDC NG SCH (09:09)
[2022-05-28] MEDS: ASPIRIN 81MG TABLET PO SCH (09:09)
[2022-05-28] MEDS: METOPROLOL TARTRATE 100MG TABLET PO SCH ×2 (09:10→22:25)
[2022-05-28] MEDS ORDERED: LACTULOSE 20G/30ML UDC PO NR (11:30)
[2022-05-28] MEDS ORDERED: BISACODYL 10MG SUPP PR NR (11:30)
[2022-05-28 16:24] LABS: PLATELET ESTIMATE NORMAL
[2022-05-29] VITALS (11 sets, daily range): BP systolic 123–159; BP diastolic 62–96
[2022-05-29] MEDS: IPRATROPIUM/ALBUTEROL 0.5-3(2.5)MG/3ML NEB HHN SCH ×4 (00:22→20:05)
[2022-05-29] MEDS: CEFEPIME 1,000 MG in DEXTROSE 5% WATER 50 ML IV SCH ×2 (05:25→16:52)
[2022-05-29] MEDS: METOCLOPRAMIDE HCL 10MG/2ML VIAL IV SCH ×4 (05:25→23:26)
[2022-05-29] MEDS: METOPROLOL TARTRATE 100MG TABLET PO SCH ×2 (08:38→20:35)
[2022-05-29] MEDS: ASPIRIN 81MG TABLET PO SCH (08:38)
[2022-05-29] MEDS: AMLODIPINE 5MG TABLET PO SCH ×2 (08:38→20:33)
[2022-05-29] MEDS: DOCUSATE SODIUM SUGAR FREE 100MG/10ML UDC NG SCH (08:38)
[2022-05-29] MEDS: QUETIAPINE FUMARATE 50MG TABLET PO SCH ×2 (08:38→20:33)
[2022-05-29] MEDS: HYDRALAZINE 20MG/ML VIAL IV PRN (08:39)
[2022-05-29] MEDS: PANTOPRAZOLE SODIUM 40 MG/VIAL IV SCH (09:57)
[2022-05-29 10:59] LABS: HEMATOCRIT. 29.8 % (42.0-52.0); HEMOGLOBIN. 9.6 g/dL (14.0-18.0); MEAN CORPUSCULAR HEMOGLOBIN 27.3 pg (28.0-32.0); MEAN PLATELET VOLUME 7.7 fl (7.4-10.4); PLATELET 235 x1000/uL (130-400); RED CELL DISTRIBUTION WIDTH 14.6 % (11.6-14.6)
[2022-05-29 11:21] LABS: PHOSPHORUS 1.9 mg/dL (2.5-4.9)
[2022-05-29 13:41] LABS: BG BASE EXCESS 3.3 mmol/L (-2.0-2.0); BG CARBOXYHEMOGLOBIN 0.2 % (0.5-1.5); BG FRACTION INSPIRED OXYGEN 30; BG METHEMOGLOBIN 0.4 % (0.0-1.5); BG OXYHEMOGLOBIN 98.4 % (94.0-97.0); BG PH 7.514 (7.350-7.450); BG PO2 144.3 mmHg (75.0-100.0); BG SAMPLE SITE RIGHT RADIAL; BG TOTAL HEMOGLOBIN 11.3 g/dL (12.0-18.0); BG VENT MODE VENT - AC
[2022-05-29] MEDS: SODIUM CHLORIDE 0.45% 1,000 ML IV SCH ×2 (14:43→23:27)
[2022-05-29] MEDS ORDERED: POTASSIUM PHOS,M-BASIC-D-BASIC 15 MMOL in DEXT 5% WATER 245 ML IV NR (15:30)
[2022-05-29 22:22] LABS: PLATELET ESTIMATE NORMAL
[2022-05-30] VITALS (12 sets, daily range): BP systolic 124–157; BP diastolic 66–97
[2022-05-30] MEDS: IPRATROPIUM/ALBUTEROL 0.5-3(2.5)MG/3ML NEB HHN SCH ×4 (01:23→21:00)
[2022-05-30] MEDS: METOCLOPRAMIDE HCL 10MG/2ML VIAL IV SCH ×4 (05:25→23:32)
[2022-05-30 06:33] LABS: HEMATOCRIT. 29.7 % (42.0-52.0); HEMOGLOBIN. 9.6 g/dL (14.0-18.0); MEAN CORPUSCULAR HEMOGLOBIN 27.4 pg (28.0-32.0); MEAN CORPUSCULAR VOLUME 84.6 fL (80.0-94.0); MEAN PLATELET VOLUME 8.1 fl (7.4-10.4); PLATELET 227 x1000/uL (130-400); RED BLOOD CELL COUNT 3.52 mill/uL (4.7-6.1); RED CELL DISTRIBUTION WIDTH 14.7 % (11.6-14.6)
[2022-05-30 06:41] LABS: INR 1.2; PROTHROMBIN TIME 12.8 sec (9.6-11.0)
[2022-05-30 06:59] LABS: CHLORIDE 116 mEq/L (98-107)
[2022-05-30 07:15] LABS: PHOSPHORUS 2.6 mg/dL (2.5-4.9)
[2022-05-30] MEDS: METOPROLOL TARTRATE 100MG TABLET PO SCH ×2 (09:02→21:48)
[2022-05-30] MEDS: DOCUSATE SODIUM SUGAR FREE 100MG/10ML UDC NG SCH (09:02)
[2022-05-30] MEDS: QUETIAPINE FUMARATE 50MG TABLET PO SCH ×2 (09:02→21:48)
[2022-05-30] MEDS: PANTOPRAZOLE SODIUM 40 MG/VIAL IV SCH (09:02)
[2022-05-30] MEDS: AMLODIPINE 5MG TABLET PO SCH ×2 (09:03→21:48)
[2022-05-30] MEDS ORDERED: CEFAZOLIN 1000MG PREMIX 50 ML IV NR (12:00)
[2022-05-30] MEDS: SODIUM CHLORIDE 0.45% 1,000 ML IV SCH ×2 (12:01→21:48)
[2022-05-30] MEDS ORDERED: PROPOFOL 200MG/20ML VIAL IV ONE (15:17)
[2022-05-30] MEDS ORDERED: LIDOCAINE HCL 1% 20ML VIAL (Pyxis) INJ ONE (15:18)
[2022-05-30] MEDS ORDERED: DEXAMETHASONE 4MG/ML 1ML VIAL ONE (16:16)
[2022-05-30] MEDS ORDERED: ONDANSETRON HCL 4MG/2ML INJ ONE (16:16)
[2022-05-30 21:18] LABS: PLATELET ESTIMATE NORMAL
[2022-05-31] VITALS (12 sets, daily range): BP systolic 104–149; BP diastolic 70–97
[2022-05-31] MEDS: IPRATROPIUM/ALBUTEROL 0.5-3(2.5)MG/3ML NEB HHN SCH ×4 (03:24→21:11)
[2022-05-31] MEDS: METOCLOPRAMIDE HCL 10MG/2ML VIAL IV SCH ×4 (06:07→23:30)
[2022-05-31] MEDS: SODIUM CHLORIDE 0.45% 1,000 ML IV SCH ×2 (06:08→17:09)
[2022-05-31] MEDS: ACETAMINOPHEN 325MG TABLET PO PRN (06:08)
[2022-05-31 07:20] LABS: HEMOGLOBIN. 9.3 g/dL (14.0-18.0); MEAN CORPUSCULAR HEMOGLOBIN 27.6 pg (28.0-32.0); MEAN CORPUSCULAR VOLUME 85.7 fL (80.0-94.0); MEAN PLATELET VOLUME 8.2 fl (7.4-10.4); PLATELET 204 x1000/uL (130-400); RED BLOOD CELL COUNT 3.38 mill/uL (4.7-6.1); RED CELL DISTRIBUTION WIDTH 15.1 % (11.6-14.6)
[2022-05-31] MEDS: ASPIRIN 81MG TABLET PO SCH (08:24)
[2022-05-31] MEDS: PANTOPRAZOLE SODIUM 40 MG/VIAL IV SCH (08:24)
[2022-05-31] MEDS: AMLODIPINE 5MG TABLET PO SCH ×2 (08:24→20:07)
[2022-05-31] MEDS: QUETIAPINE FUMARATE 50MG TABLET PO SCH ×2 (08:24→20:06)
[2022-05-31] MEDS: DOCUSATE SODIUM SUGAR FREE 100MG/10ML UDC NG SCH (08:24)
[2022-05-31] MEDS: METOPROLOL TARTRATE 100MG TABLET PO SCH ×2 (08:25→20:06)
[2022-05-31 09:31] LABS: PHOSPHORUS 3.2 mg/dL (2.5-4.9)
[2022-05-31 09:39] LABS: BG CARBOXYHEMOGLOBIN 0.3 % (0.5-1.5); BG DEOXYHEMOGLOBIN 1.6 % (0.0-5.0); BG FRACTION INSPIRED OXYGEN 30; BG HCO3 ACT 29.8 mmol/L (22.0-26.0); BG METHEMOGLOBIN 0.1 % (0.0-1.5); BG OXYGEN SATURATION 98.4 % (92.0-98.5); BG PH 7.439 (7.350-7.450); BG PO2 120.2 mmHg (75.0-100.0); BG SAMPLE SITE RIGHT RADIAL; BG VENT MODE VENT - CPAP
[2022-05-31 20:50] LABS: PLATELET ESTIMATE NORMAL
[2022-06-01] VITALS (11 sets, daily range): BP systolic 114–147; BP diastolic 73–92
[2022-06-01] MEDS: IPRATROPIUM/ALBUTEROL 0.5-3(2.5)MG/3ML NEB HHN SCH ×4 (02:08→20:25)
[2022-06-01] MEDS: SODIUM CHLORIDE 0.45% 1,000 ML IV SCH ×2 (02:23→12:07)
[2022-06-01] MEDS: METOCLOPRAMIDE HCL 10MG/2ML VIAL IV SCH ×3 (06:03→17:32)
[2022-06-01 06:17] LABS: HEMATOCRIT. 27.9 % (42.0-52.0); HEMOGLOBIN. 9.1 g/dL (14.0-18.0); MEAN CORPUSCULAR HEMOGLOBIN 27.8 pg (28.0-32.0); MEAN PLATELET VOLUME 8.3 fl (7.4-10.4); PLATELET 210 x1000/uL (130-400); RED BLOOD CELL COUNT 3.29 mill/uL (4.7-6.1); RED CELL DISTRIBUTION WIDTH 14.7 % (11.6-14.6)
[2022-06-01 06:50] LABS: PHOSPHORUS 1.7 mg/dL (2.5-4.9)
[2022-06-01] MEDS: DOCUSATE SODIUM SUGAR FREE 100MG/10ML UDC NG SCH (09:15)
[2022-06-01] MEDS: ASPIRIN 81MG TABLET PO SCH (09:16)
[2022-06-01] MEDS: QUETIAPINE FUMARATE 50MG TABLET PO SCH ×2 (09:16→20:43)
[2022-06-01] MEDS: AMLODIPINE 5MG TABLET PO SCH ×2 (09:16→20:42)
[2022-06-01] MEDS: PANTOPRAZOLE SODIUM 40 MG/VIAL IV SCH (09:16)
[2022-06-01] MEDS: METOPROLOL TARTRATE 100MG TABLET PO SCH ×2 (09:16→20:43)
[2022-06-01] MEDS ORDERED: POTASSIUM-SODIUM PHOSPHATE POWDER PACKET PO NR (13:30)
[2022-06-01 13:53] LABS: PLATELET ESTIMATE NORMAL
[2022-06-02] VITALS (13 sets, daily range): BP systolic 113–164; BP diastolic 69–114
[2022-06-02] MEDS: METOCLOPRAMIDE HCL 10MG/2ML VIAL IV SCH ×5 (00:36→23:22)
[2022-06-02] MEDS: IPRATROPIUM/ALBUTEROL 0.5-3(2.5)MG/3ML NEB HHN SCH ×4 (02:00→20:11)
[2022-06-02 06:22] LABS: BASOPHILS % 0.4 % (0.0-2.0); EOSINOPHILS % 1.9 % (0.0-5.0); HEMATOCRIT. 30.3 % (42.0-52.0); HEMOGLOBIN. 9.9 g/dL (14.0-18.0); MEAN CORPUSCULAR HEMOGLOBIN 27.7 pg (28.0-32.0); MEAN CORPUSCULAR VOLUME 84.8 fL (80.0-94.0); MEAN PLATELET VOLUME 8.2 fl (7.4-10.4); MONOCYTES % 5.3 % (2.0-8.0); NEUTROPHILS % 81.4 % (40.0-76.0); PLATELET 258 x1000/uL (130-400); RED BLOOD CELL COUNT 3.57 mill/uL (4.7-6.1); RED CELL DISTRIBUTION WIDTH 14.8 % (11.6-14.6)
[2022-06-02 07:57] LABS: PHOSPHORUS 1.7 mg/dL (2.5-4.9)
[2022-06-02] MEDS: PANTOPRAZOLE SODIUM 40 MG/VIAL IV SCH (09:06)
[2022-06-02] MEDS: DOCUSATE SODIUM SUGAR FREE 100MG/10ML UDC NG SCH (09:06)
[2022-06-02] MEDS: AMLODIPINE 5MG TABLET PO SCH ×2 (09:06→20:37)
[2022-06-02] MEDS: SODIUM CHLORIDE 0.45% 1,000 ML IV SCH (09:06)
[2022-06-02] MEDS: METOPROLOL TARTRATE 100MG TABLET PO SCH ×2 (09:07→20:37)
[2022-06-02] MEDS: ASPIRIN 81MG TABLET PO SCH (09:07)
[2022-06-02] MEDS: QUETIAPINE FUMARATE 50MG TABLET PO SCH ×2 (09:07→20:37)
[2022-06-02] MEDS: POTASSIUM-SODIUM PHOSPHATE POWDER PACKET PO SCH ×2 (15:26→21:12)
[2022-06-03] VITALS (12 sets, daily range): BP systolic 105–146; BP diastolic 71–95
[2022-06-03] MEDS: IPRATROPIUM/ALBUTEROL 0.5-3(2.5)MG/3ML NEB HHN SCH ×4 (01:02→20:56)
[2022-06-03] MEDS: SODIUM CHLORIDE 0.45% 1,000 ML IV SCH (02:36)
[2022-06-03] MEDS: METOCLOPRAMIDE HCL 10MG/2ML VIAL IV SCH ×3 (05:29→18:22)
[2022-06-03 05:55] LABS: BASOPHILS % 0.4 % (0.0-2.0); EOSINOPHILS % 2.5 % (0.0-5.0); HEMATOCRIT. 30.2 % (42.0-52.0); HEMOGLOBIN. 10.1 g/dL (14.0-18.0); LYMPHOCYTES % 10.5 % (20.0-50.0); MEAN CORPUSCULAR HEMOGLOBIN 28.3 pg (28.0-32.0); MEAN CORPUSCULAR VOLUME 84.3 fL (80.0-94.0); MONOCYTES % 6.6 % (2.0-8.0); PLATELET 304 x1000/uL (130-400); RED BLOOD CELL COUNT 3.58 mill/uL (4.7-6.1); RED CELL DISTRIBUTION WIDTH 14.6 % (11.6-14.6)
[2022-06-03 06:30] LABS: PHOSPHORUS 2.3 mg/dL (2.5-4.9)
[2022-06-03] MEDS: AMLODIPINE 5MG TABLET PO SCH ×2 (08:38→20:53)
[2022-06-03] MEDS: DOCUSATE SODIUM SUGAR FREE 100MG/10ML UDC NG SCH (08:38)
[2022-06-03] MEDS: ASPIRIN 81MG TABLET PO SCH (08:38)
[2022-06-03] MEDS: QUETIAPINE FUMARATE 50MG TABLET PO SCH ×2 (08:38→20:53)
[2022-06-03] MEDS: METOPROLOL TARTRATE 100MG TABLET PO SCH ×2 (08:38→20:53)
[2022-06-03] MEDS: POTASSIUM-SODIUM PHOSPHATE POWDER PACKET PO SCH ×2 (08:38→18:22)
[2022-06-03] MEDS: PANTOPRAZOLE SODIUM 40 MG/VIAL IV SCH (08:39)
[2022-06-04] VITALS (12 sets, daily range): BP systolic 112–140; BP diastolic 51–88
[2022-06-04] MEDS: METOCLOPRAMIDE HCL 10MG/2ML VIAL IV SCH ×5 (00:03→23:18)
[2022-06-04] MEDS: IPRATROPIUM/ALBUTEROL 0.5-3(2.5)MG/3ML NEB HHN SCH ×4 (02:11→20:38)
[2022-06-04 06:31] LABS: BASOPHILS % 0.4 % (0.0-2.0); EOSINOPHILS % 2.1 % (0.0-5.0); HEMATOCRIT. 31.7 % (42.0-52.0); HEMOGLOBIN. 10.3 g/dL (14.0-18.0); LYMPHOCYTES % 8.4 % (20.0-50.0); MEAN CORPUSCULAR HEMOGLOBIN 27.3 pg (28.0-32.0); MEAN CORPUSCULAR VOLUME 84.1 fL (80.0-94.0); MEAN PLATELET VOLUME 8.8 fl (7.4-10.4); MONOCYTES % 6.2 % (2.0-8.0); NEUTROPHILS % 82.9 % (40.0-76.0); PLATELET 343 x1000/uL (130-400); RED BLOOD CELL COUNT 3.77 mill/uL (4.7-6.1); RED CELL DISTRIBUTION WIDTH 14.6 % (11.6-14.6)
[2022-06-04 06:41] LABS: PHOSPHORUS 3.2 mg/dL (2.5-4.9)
[2022-06-04] MEDS: ASPIRIN 81MG TABLET PO SCH (08:37)
[2022-06-04] MEDS: DOCUSATE SODIUM SUGAR FREE 100MG/10ML UDC NG SCH (08:37)
[2022-06-04] MEDS: PANTOPRAZOLE SODIUM 40 MG/VIAL IV SCH (08:37)
[2022-06-04] MEDS: POTASSIUM-SODIUM PHOSPHATE POWDER PACKET PO SCH ×2 (08:37→17:30)
[2022-06-04] MEDS: AMLODIPINE 5MG TABLET PO SCH ×2 (08:38→20:57)
[2022-06-04] MEDS: METOPROLOL TARTRATE 100MG TABLET PO SCH ×2 (08:38→20:58)
[2022-06-04] MEDS: QUETIAPINE FUMARATE 50MG TABLET PO SCH ×2 (08:38→20:57)
[2022-06-04] MEDS ORDERED: MAGNESIUM 1 G PREMIX 100 ML IV SCH ×2 (10:00→12:00)
[2022-06-04] MEDS: ENOXAPARIN 40MG/0.4ML SYR SUBCUT SCH (11:23)
[2022-06-04] MEDS: ACETYLCYSTEINE 100MG/ML 10% VIAL 4ML INH SCH (22:00)
[2022-06-05] VITALS (12 sets, daily range): BP systolic 109–146; BP diastolic 62–92
[2022-06-05] MEDS: ACETYLCYSTEINE 100MG/ML 10% VIAL 4ML INH SCH ×2 (01:47→08:01)
[2022-06-05] MEDS: IPRATROPIUM/ALBUTEROL 0.5-3(2.5)MG/3ML NEB HHN SCH ×3 (01:47→20:45)
[2022-06-05] MEDS: METOCLOPRAMIDE HCL 10MG/2ML VIAL IV SCH ×4 (05:16→23:16)
[2022-06-05 06:21] LABS: BASOPHILS % 0.4 % (0.0-2.0); EOSINOPHILS % 1.8 % (0.0-5.0); HEMATOCRIT. 32.6 % (42.0-52.0); HEMOGLOBIN. 10.7 g/dL (14.0-18.0); LYMPHOCYTES % 7.9 % (20.0-50.0); MEAN CORPUSCULAR HEMOGLOBIN 27.8 pg (28.0-32.0); MEAN CORPUSCULAR VOLUME 84.8 fL (80.0-94.0); MEAN PLATELET VOLUME 8.2 fl (7.4-10.4); MONOCYTES % 7.1 % (2.0-8.0); NEUTROPHILS % 82.8 % (40.0-76.0); PLATELET 386 x1000/uL (130-400); RED BLOOD CELL COUNT 3.84 mill/uL (4.7-6.1); RED CELL DISTRIBUTION WIDTH 15.1 % (11.6-14.6)
[2022-06-05] MEDS: PANTOPRAZOLE SODIUM 40 MG/VIAL IV SCH (08:05)
[2022-06-05] MEDS: ASPIRIN 81MG TABLET PO SCH (08:05)
[2022-06-05] MEDS: POTASSIUM-SODIUM PHOSPHATE POWDER PACKET PO SCH ×2 (08:05→17:09)
[2022-06-05] MEDS: AMLODIPINE 5MG TABLET PO SCH ×2 (08:05→20:38)
[2022-06-05] MEDS: QUETIAPINE FUMARATE 50MG TABLET PO SCH ×2 (08:05→20:38)
[2022-06-05] MEDS: METOPROLOL TARTRATE 100MG TABLET PO SCH ×2 (08:05→20:39)
[2022-06-05] MEDS: ENOXAPARIN 40MG/0.4ML SYR SUBCUT SCH (08:06)
[2022-06-05] MEDS: DOCUSATE SODIUM SUGAR FREE 100MG/10ML UDC NG SCH (08:06)
[2022-06-05 08:48] LABS: BG BASE EXCESS 5.6 mmol/L (-2.0-2.0); BG CARBOXYHEMOGLOBIN 1.4 % (0.5-1.5); BG DEOXYHEMOGLOBIN 1.9 % (0.0-5.0); BG FRACTION INSPIRED OXYGEN 38; BG HCO3 ACT 30.2 mmol/L (22.0-26.0); BG METHEMOGLOBIN 0.4 % (0.0-1.5); BG OXYGEN SATURATION 98.1 % (92.0-98.5); BG OXYHEMOGLOBIN 96.3 % (94.0-97.0); BG PH 7.454 (7.350-7.450); BG PO2 101.9 mmHg (75.0-100.0); BG SAMPLE SITE RIGHT RADIAL; BG TOTAL HEMOGLOBIN 12.5 g/dL (12.0-18.0); BG VENT MODE T PIECE COOL AEROSAL
[2022-06-05] MEDS: DEXTROSE 5% WATER 1,000 ML IV SCH (14:41)
[2022-06-06] VITALS (13 sets, daily range): BP systolic 93–165; BP diastolic 58–118
[2022-06-06] MEDS: ACETYLCYSTEINE 100MG/ML 10% VIAL 4ML INH SCH ×3 (02:10→14:36)
[2022-06-06] MEDS: IPRATROPIUM/ALBUTEROL 0.5-3(2.5)MG/3ML NEB HHN SCH ×4 (02:10→20:44)
[2022-06-06] MEDS: METOCLOPRAMIDE HCL 10MG/2ML VIAL IV SCH ×3 (06:16→18:34)
[2022-06-06] MEDS: DEXTROSE 5% WATER 1,000 ML IV SCH (06:17)
[2022-06-06 07:17] LABS: BASOPHILS % 0.4 % (0.0-2.0); EOSINOPHILS % 1.9 % (0.0-5.0); HEMOGLOBIN. 10.5 g/dL (14.0-18.0); LYMPHOCYTES % 7.4 % (20.0-50.0); MEAN CORPUSCULAR HEMOGLOBIN 27.4 pg (28.0-32.0); MEAN PLATELET VOLUME 8.1 fl (7.4-10.4); MONOCYTES % 6.5 % (2.0-8.0); NEUTROPHILS % 83.8 % (40.0-76.0); PLATELET 433 x1000/uL (130-400); RED BLOOD CELL COUNT 3.83 mill/uL (4.7-6.1); RED CELL DISTRIBUTION WIDTH 15.1 % (11.6-14.6)
[2022-06-06 07:45] LABS: PHOSPHORUS 2.7 mg/dL (2.5-4.9)
[2022-06-06] MEDS: DOCUSATE SODIUM SUGAR FREE 100MG/10ML UDC NG SCH (11:53)
[2022-06-06] MEDS: METOPROLOL TARTRATE 100MG TABLET PO SCH ×2 (11:54→21:05)
[2022-06-06] MEDS: POTASSIUM-SODIUM PHOSPHATE POWDER PACKET PO SCH ×2 (11:54→18:34)
[2022-06-06] MEDS: AMLODIPINE 5MG TABLET PO SCH ×2 (11:55→21:04)
[2022-06-06] MEDS: QUETIAPINE FUMARATE 50MG TABLET PO SCH ×2 (11:55→21:03)
[2022-06-06] MEDS: ENOXAPARIN 40MG/0.4ML SYR SUBCUT SCH (11:57)
[2022-06-06] MEDS: ACETAMINOPHEN 650MG/20.3ML UDC PO PRN ×2 (12:25→21:03)
[2022-06-06] MEDS ORDERED: POLYETHYLENE GLYCOL 3350 (17GM) 1 DOSE PACK PO SCH (13:45)
[2022-06-07] VITALS (12 sets, daily range): BP systolic 97–153; BP diastolic 62–98
[2022-06-07] MEDS: METOCLOPRAMIDE HCL 10MG/2ML VIAL IV SCH ×5 (00:39→23:57)
[2022-06-07] MEDS: DEXTROSE 5% WATER 1,000 ML IV SCH ×3 (00:40→18:17)
[2022-06-07] MEDS: ACETYLCYSTEINE 100MG/ML 10% VIAL 4ML INH SCH ×3 (02:32→13:55)
[2022-06-07] MEDS: IPRATROPIUM/ALBUTEROL 0.5-3(2.5)MG/3ML NEB HHN SCH ×4 (02:32→21:43)
[2022-06-07 05:16] LABS: BASOPHILS % 0.3 % (0.0-2.0); EOSINOPHILS % 2.3 % (0.0-5.0); HEMOGLOBIN. 10.2 g/dL (14.0-18.0); LYMPHOCYTES % 8.2 % (20.0-50.0); MEAN CORPUSCULAR HEMOGLOBIN 27.8 pg (28.0-32.0); MEAN CORPUSCULAR VOLUME 87.5 fL (80.0-94.0); MONOCYTES % 6.5 % (2.0-8.0); NEUTROPHILS % 82.7 % (40.0-76.0); PLATELET 377 x1000/uL (130-400); RED BLOOD CELL COUNT 3.66 mill/uL (4.7-6.1); RED CELL DISTRIBUTION WIDTH 15.8 % (11.6-14.6)
[2022-06-07 07:19] LABS: PHOSPHORUS 3.2 mg/dL (2.5-4.9)
[2022-06-07 07:43] LABS: BG BASE EXCESS 3.9 mmol/L (-2.0-2.0); BG CARBOXYHEMOGLOBIN 0.3 % (0.5-1.5); BG DEOXYHEMOGLOBIN 3.1 % (0.0-5.0); BG HCO3 ACT 27.8 mmol/L (22.0-26.0); BG METHEMOGLOBIN 0.1 % (0.0-1.5); BG OXYGEN SATURATION 96.9 % (92.0-98.5); BG OXYHEMOGLOBIN 96.5 % (94.0-97.0); BG PCO2 39.1 mmHg (35.0-45.0); BG PH 7.469 (7.350-7.450); BG PO2 90.7 mmHg (75.0-100.0); BG SAMPLE SITE RIGHT RADIAL; BG TOTAL HEMOGLOBIN 11.4 g/dL (12.0-18.0); BG VENT MODE COOL AEROSOL TRACH
[2022-06-07] MEDS: DOCUSATE SODIUM SUGAR FREE 100MG/10ML UDC NG SCH (09:58)
[2022-06-07] MEDS: QUETIAPINE FUMARATE 50MG TABLET PO SCH ×2 (09:59→21:46)
[2022-06-07] MEDS: POTASSIUM-SODIUM PHOSPHATE POWDER PACKET PO SCH ×2 (09:59→18:16)
[2022-06-07] MEDS: METOPROLOL TARTRATE 100MG TABLET PO SCH ×2 (09:59→21:46)
[2022-06-07] MEDS: AMLODIPINE 5MG TABLET PO SCH ×2 (10:00→21:47)
[2022-06-07] MEDS: ENOXAPARIN 40MG/0.4ML SYR SUBCUT SCH (10:00)
[2022-06-07] MEDS ORDERED: BISACODYL 10MG SUPP PR NR (18:30)
[2022-06-08] VITALS (12 sets, daily range): BP systolic 93–146; BP diastolic 59–76
[2022-06-08] MEDS: IPRATROPIUM/ALBUTEROL 0.5-3(2.5)MG/3ML NEB HHN SCH ×3 (01:30→14:24)
[2022-06-08] MEDS: ACETYLCYSTEINE 100MG/ML 10% VIAL 4ML INH SCH ×3 (01:31→14:36)
[2022-06-08] MEDS: METOCLOPRAMIDE HCL 10MG/2ML VIAL IV SCH ×3 (05:04→18:33)
[2022-06-08 06:24] LABS: BASOPHILS % 0.4 % (0.0-2.0); EOSINOPHILS % 2.2 % (0.0-5.0); HEMATOCRIT. 29.9 % (42.0-52.0); HEMOGLOBIN. 9.9 g/dL (14.0-18.0); LYMPHOCYTES % 9.5 % (20.0-50.0); MEAN CORPUSCULAR HEMOGLOBIN 28.4 pg (28.0-32.0); MEAN CORPUSCULAR VOLUME 86.1 fL (80.0-94.0); MEAN PLATELET VOLUME 8.4 fl (7.4-10.4); MONOCYTES % 6.6 % (2.0-8.0); NEUTROPHILS % 81.3 % (40.0-76.0); PLATELET 350 x1000/uL (130-400); RED BLOOD CELL COUNT 3.47 mill/uL (4.7-6.1); RED CELL DISTRIBUTION WIDTH 15.6 % (11.6-14.6)
[2022-06-08 06:51] LABS: PHOSPHORUS 3.1 mg/dL (2.5-4.9)
[2022-06-08] MEDS: AMLODIPINE 5MG TABLET PO SCH ×2 (09:00→20:39)
[2022-06-08] MEDS: METOPROLOL TARTRATE 100MG TABLET PO SCH ×2 (09:00→20:39)
[2022-06-08] MEDS: POTASSIUM-SODIUM PHOSPHATE POWDER PACKET PO SCH ×2 (10:08→18:34)
[2022-06-08] MEDS: ENOXAPARIN 40MG/0.4ML SYR SUBCUT SCH (10:09)
[2022-06-08] MEDS: QUETIAPINE FUMARATE 50MG TABLET PO SCH ×2 (10:10→20:37)
[2022-06-08] MEDS: MAGNESIUM OXIDE 400MG TABLET NG SCH (10:17)
[2022-06-08] MEDS: DOCUSATE SODIUM SUGAR FREE 100MG/10ML UDC NG SCH (10:18)
[2022-06-09] VITALS (12 sets, daily range): BP systolic 85–164; BP diastolic 28–109
[2022-06-09] MEDS: ACETYLCYSTEINE 100MG/ML 10% VIAL 4ML INH SCH ×3 (01:03→13:20)
[2022-06-09] MEDS: IPRATROPIUM/ALBUTEROL 0.5-3(2.5)MG/3ML NEB HHN SCH ×4 (01:04→20:52)
[2022-06-09] MEDS: METOCLOPRAMIDE HCL 10MG/2ML VIAL IV SCH ×5 (05:40→23:46)
[2022-06-09 07:35] LABS: BASOPHILS % 0.4 % (0.0-2.0); HEMATOCRIT. 31.3 % (42.0-52.0); HEMOGLOBIN. 10.3 g/dL (14.0-18.0); LYMPHOCYTES % 9.1 % (20.0-50.0); MEAN CORPUSCULAR HEMOGLOBIN 27.9 pg (28.0-32.0); MEAN CORPUSCULAR VOLUME 84.7 fL (80.0-94.0); MEAN PLATELET VOLUME 8.6 fl (7.4-10.4); NEUTROPHILS % 82.5 % (40.0-76.0); PLATELET 368 x1000/uL (130-400); RED BLOOD CELL COUNT 3.69 mill/uL (4.7-6.1); RED CELL DISTRIBUTION WIDTH 14.9 % (11.6-14.6)
[2022-06-09 08:27] LABS: PHOSPHORUS 2.9 mg/dL (2.5-4.9)
[2022-06-09] MEDS: DOCUSATE SODIUM SUGAR FREE 100MG/10ML UDC NG SCH (09:21)
[2022-06-09] MEDS: POTASSIUM-SODIUM PHOSPHATE POWDER PACKET PO SCH ×2 (09:21→17:23)
[2022-06-09] MEDS: DEXTROSE 5% WATER 1,000 ML IV SCH ×2 (09:21→23:48)
[2022-06-09] MEDS: METOPROLOL TARTRATE 100MG TABLET PO SCH ×2 (09:22→21:00)
[2022-06-09] MEDS: QUETIAPINE FUMARATE 50MG TABLET PO SCH ×2 (09:22→21:00)
[2022-06-09] MEDS: MAGNESIUM OXIDE 400MG TABLET NG SCH (09:25)
[2022-06-09] MEDS: AMLODIPINE 5MG TABLET PO SCH ×2 (09:26→21:00)
[2022-06-09] MEDS: ENOXAPARIN 40MG/0.4ML SYR SUBCUT SCH (09:26)
[2022-06-10] VITALS (12 sets, daily range): BP systolic 93–161; BP diastolic 63–100
[2022-06-10] MEDS: IPRATROPIUM/ALBUTEROL 0.5-3(2.5)MG/3ML NEB HHN SCH ×4 (02:31→20:36)
[2022-06-10] MEDS: METOCLOPRAMIDE HCL 10MG/2ML VIAL IV SCH ×2 (05:31→12:06)
[2022-06-10 07:19] LABS: BASOPHILS % 0.3 % (0.0-2.0); EOSINOPHILS % 1.8 % (0.0-5.0); HEMATOCRIT. 31.3 % (42.0-52.0); HEMOGLOBIN. 10.3 g/dL (14.0-18.0); LYMPHOCYTES % 9.2 % (20.0-50.0); MEAN CORPUSCULAR VOLUME 84.7 fL (80.0-94.0); MEAN PLATELET VOLUME 8.5 fl (7.4-10.4); MONOCYTES % 5.5 % (2.0-8.0); NEUTROPHILS % 83.2 % (40.0-76.0); PLATELET 341 x1000/uL (130-400); RED CELL DISTRIBUTION WIDTH 15.1 % (11.6-14.6)
[2022-06-10 08:04] LABS: PHOSPHORUS 2.6 mg/dL (2.5-4.9)
[2022-06-10] MEDS: DOCUSATE SODIUM SUGAR FREE 100MG/10ML UDC NG SCH (08:20)
[2022-06-10] MEDS: QUETIAPINE FUMARATE 50MG TABLET PO SCH ×2 (08:22→22:04)
[2022-06-10] MEDS: POTASSIUM-SODIUM PHOSPHATE POWDER PACKET PO SCH ×2 (08:22→16:52)
[2022-06-10] MEDS: MAGNESIUM OXIDE 400MG TABLET NG SCH (08:22)
[2022-06-10] MEDS: ENOXAPARIN 40MG/0.4ML SYR SUBCUT SCH (08:22)
[2022-06-10] MEDS: METOPROLOL TARTRATE 100MG TABLET PO SCH ×2 (08:22→22:04)
[2022-06-10] MEDS: AMLODIPINE 5MG TABLET PO SCH ×2 (08:22→22:04)
[2022-06-10] MEDS: DEXTROSE 5% WATER 1,000 ML IV SCH (17:37)
[2022-06-11] VITALS (12 sets, daily range): BP systolic 94–169; BP diastolic 37–97
[2022-06-11] MEDS: IPRATROPIUM/ALBUTEROL 0.5-3(2.5)MG/3ML NEB HHN SCH ×4 (02:02→20:23)
[2022-06-11] MEDS: QUETIAPINE FUMARATE 50MG TABLET PO SCH ×2 (08:16→22:16)
[2022-06-11] MEDS: AMLODIPINE 5MG TABLET PO SCH ×2 (08:16→22:17)
[2022-06-11] MEDS: ENOXAPARIN 40MG/0.4ML SYR SUBCUT SCH (08:17)
[2022-06-11] MEDS: DOCUSATE SODIUM SUGAR FREE 100MG/10ML UDC NG SCH (08:17)
[2022-06-11] MEDS: METOPROLOL TARTRATE 100MG TABLET PO SCH ×2 (08:17→22:17)
[2022-06-11] MEDS: POTASSIUM-SODIUM PHOSPHATE POWDER PACKET PO SCH ×2 (08:17→17:14)
[2022-06-11] MEDS: MAGNESIUM OXIDE 400MG TABLET NG SCH ×2 (08:20→17:14)
[2022-06-11 09:20] LABS: HEMATOCRIT. 31.7 % (42.0-52.0); HEMOGLOBIN. 10.5 g/dL (14.0-18.0); MEAN CORPUSCULAR VOLUME 84.4 fL (80.0-94.0); MEAN PLATELET VOLUME 8.6 fl (7.4-10.4); PLATELET 314 x1000/uL (130-400); RED BLOOD CELL COUNT 3.75 mill/uL (4.7-6.1)
[2022-06-11 09:27] LABS: PHOSPHORUS 2.4 mg/dL (2.5-4.9)
[2022-06-11] MEDS: DEXTROSE 5% WATER 1,000 ML IV SCH (11:10)
[2022-06-11 22:54] LABS: PLATELET ESTIMATE NORMAL
[2022-06-12] VITALS (12 sets, daily range): BP systolic 78–146; BP diastolic 56–90
[2022-06-12] MEDS: IPRATROPIUM/ALBUTEROL 0.5-3(2.5)MG/3ML NEB HHN SCH ×4 (02:11→19:56)
[2022-06-12 06:17] LABS: HEMATOCRIT. 32.9 % (42.0-52.0); HEMOGLOBIN. 10.6 g/dL (14.0-18.0); MEAN CORPUSCULAR HEMOGLOBIN 27.3 pg (28.0-32.0); MEAN CORPUSCULAR VOLUME 84.6 fL (80.0-94.0); MEAN PLATELET VOLUME 9.2 fl (7.4-10.4); PLATELET 328 x1000/uL (130-400); RED BLOOD CELL COUNT 3.89 mill/uL (4.7-6.1); RED CELL DISTRIBUTION WIDTH 14.8 % (11.6-14.6)
[2022-06-12] MEDS: DEXTROSE 5% WATER 1,000 ML IV SCH ×2 (06:21→22:34)
[2022-06-12 06:50] LABS: PHOSPHORUS 2.9 mg/dL (2.5-4.9)
[2022-06-12] MEDS: DOCUSATE SODIUM SUGAR FREE 100MG/10ML UDC NG SCH (08:51)
[2022-06-12] MEDS: POTASSIUM-SODIUM PHOSPHATE POWDER PACKET PO SCH ×2 (08:52→17:43)
[2022-06-12] MEDS: QUETIAPINE FUMARATE 50MG TABLET PO SCH ×2 (08:53→22:31)
[2022-06-12] MEDS: ENOXAPARIN 40MG/0.4ML SYR SUBCUT SCH (08:53)
[2022-06-12] MEDS: MAGNESIUM OXIDE 400MG TABLET NG SCH ×2 (08:53→17:43)
[2022-06-12] MEDS: METOPROLOL TARTRATE 100MG TABLET PO SCH ×2 (09:00→21:00)
[2022-06-12] MEDS: AMLODIPINE 5MG TABLET PO SCH (09:00)
[2022-06-12 11:15] LABS: PLATELET ESTIMATE NORMAL
[2022-06-12] MEDS: ACETAMINOPHEN 650MG/20.3ML UDC PO PRN (13:46)
[2022-06-12] MEDS ORDERED: MAGNESIUM 2 G PREMIX 50 ML IV NR (14:00)
[2022-06-13] VITALS (12 sets, daily range): BP systolic 107–163; BP diastolic 72–113
[2022-06-13] MEDS: IPRATROPIUM/ALBUTEROL 0.5-3(2.5)MG/3ML NEB HHN SCH ×4 (01:11→21:05)
[2022-06-13] MEDS: METOPROLOL TARTRATE 100MG TABLET PO SCH ×3 (02:14→21:47)
[2022-06-13] MEDS: ACETAMINOPHEN 650MG/20.3ML UDC PO PRN (05:12)
[2022-06-13 06:17] LABS: HEMATOCRIT. 31.5 % (42.0-52.0); HEMOGLOBIN. 10.4 g/dL (14.0-18.0); MEAN CORPUSCULAR VOLUME 84.6 fL (80.0-94.0); MEAN PLATELET VOLUME 8.5 fl (7.4-10.4); PLATELET 278 x1000/uL (130-400); RED BLOOD CELL COUNT 3.73 mill/uL (4.7-6.1); RED CELL DISTRIBUTION WIDTH 15.1 % (11.6-14.6)
[2022-06-13 06:55] LABS: PHOSPHORUS 2.5 mg/dL (2.5-4.9)
[2022-06-13] MEDS: DOCUSATE SODIUM SUGAR FREE 100MG/10ML UDC NG SCH (08:58)
[2022-06-13] MEDS: ENOXAPARIN 40MG/0.4ML SYR SUBCUT SCH (08:59)
[2022-06-13] MEDS: MAGNESIUM OXIDE 400MG TABLET NG SCH ×2 (08:59→17:17)
[2022-06-13] MEDS: POTASSIUM-SODIUM PHOSPHATE POWDER PACKET PO SCH ×2 (08:59→17:17)
[2022-06-13 12:46] LABS: PLATELET ESTIMATE NORMAL
[2022-06-13] MEDS: DEXTROSE 5% WATER 1,000 ML IV SCH (13:58)
[2022-06-13] MEDS: PIPERACILLIN/TAZOBACTAM 3.375 G in DEXTROSE 5% WATER 50 ML IV SCH ×2 (14:26→21:45)
[2022-06-13 15:33] LABS: CLARITY URINE CLEAR (CLEAR); COLOR URINE YELLOW (YELLOW); KETONES URINE NEGATIVE (NEGATIVE); LEUKOCYTE ESTERASE URINE NEGATIVE (NEGATIVE); NITRITE URINE NEGATIVE (NEGATIVE); OCCULT BLOOD URINE NEGATIVE (NEGATIVE); PROTEIN URINE 1+ (NEGATIVE); SPECIFIC GRAVITY URINE 1.019 (1.005-1.030)
[2022-06-14] VITALS (12 sets, daily range): BP systolic 104–155; BP diastolic 68–97
[2022-06-14] MEDS: IPRATROPIUM/ALBUTEROL 0.5-3(2.5)MG/3ML NEB HHN SCH ×4 (01:10→21:28)
[2022-06-14] MEDS: PIPERACILLIN/TAZOBACTAM 3.375 G in DEXTROSE 5% WATER 50 ML IV SCH ×3 (05:32→21:20)
[2022-06-14] MEDS: DEXTROSE 5% WATER 1,000 ML IV SCH ×2 (05:33→21:40)
[2022-06-14 06:42] LABS: HEMATOCRIT. 32.3 % (42.0-52.0); HEMOGLOBIN. 10.4 g/dL (14.0-18.0); MEAN CORPUSCULAR HEMOGLOBIN 27.5 pg (28.0-32.0); MEAN CORPUSCULAR VOLUME 84.9 fL (80.0-94.0); MEAN PLATELET VOLUME 8.9 fl (7.4-10.4); PLATELET 293 x1000/uL (130-400); RED CELL DISTRIBUTION WIDTH 14.8 % (11.6-14.6)
[2022-06-14 06:43] LABS: CHLORIDE 108 mEq/L (98-107)
[2022-06-14 06:54] LABS: PHOSPHORUS 2.9 mg/dL (2.5-4.9)
[2022-06-14] MEDS: ACETAMINOPHEN 650MG/20.3ML UDC PO PRN (10:34)
[2022-06-14] MEDS: MAGNESIUM OXIDE 400MG TABLET NG SCH ×2 (10:35→17:26)
[2022-06-14] MEDS: POTASSIUM-SODIUM PHOSPHATE POWDER PACKET PO SCH ×2 (10:35→17:26)
[2022-06-14] MEDS: DOCUSATE SODIUM SUGAR FREE 100MG/10ML UDC NG SCH (10:35)
[2022-06-14] MEDS: METOPROLOL TARTRATE 100MG TABLET PO SCH (10:35)
[2022-06-14] MEDS: ENOXAPARIN 40MG/0.4ML SYR SUBCUT SCH (10:36)
[2022-06-14 19:36] LABS: PLATELET ESTIMATE NORMAL
[2022-06-14] MEDS: GUAIFENESIN 600MG ER TABLET PO SCH (21:21)
[2022-06-15] VITALS (12 sets, daily range): BP systolic 131–176; BP diastolic 71–120
[2022-06-15] MEDS: IPRATROPIUM/ALBUTEROL 0.5-3(2.5)MG/3ML NEB HHN SCH ×4 (01:12→20:42)
[2022-06-15] MEDS: PIPERACILLIN/TAZOBACTAM 3.375 G in DEXTROSE 5% WATER 50 ML IV SCH ×3 (05:40→21:36)
[2022-06-15 06:19] LABS: BASOPHILS % 0.2 % (0.0-2.0); EOSINOPHILS % 0.9 % (0.0-5.0); HEMATOCRIT. 29.8 % (42.0-52.0); HEMOGLOBIN. 9.8 g/dL (14.0-18.0); LYMPHOCYTES % 11.3 % (20.0-50.0); MEAN CORPUSCULAR HEMOGLOBIN 27.8 pg (28.0-32.0); MEAN CORPUSCULAR VOLUME 84.4 fL (80.0-94.0); MEAN PLATELET VOLUME 8.4 fl (7.4-10.4); MONOCYTES % 12.4 % (2.0-8.0); NEUTROPHILS % 75.2 % (40.0-76.0); PLATELET 278 x1000/uL (130-400); RED BLOOD CELL COUNT 3.53 mill/uL (4.7-6.1); RED CELL DISTRIBUTION WIDTH 14.4 % (11.6-14.6)
[2022-06-15 06:40] LABS: CHLORIDE 111 mEq/L (98-107)
[2022-06-15] MEDS: DEXTROSE 5% WATER 1,000 ML IV SCH (08:09)
[2022-06-15] MEDS: DOCUSATE SODIUM SUGAR FREE 100MG/10ML UDC NG SCH (08:27)
[2022-06-15] MEDS: MAGNESIUM OXIDE 400MG TABLET NG SCH ×2 (08:27→16:41)
[2022-06-15] MEDS: POTASSIUM-SODIUM PHOSPHATE POWDER PACKET PO SCH ×2 (08:27→16:41)
[2022-06-15] MEDS: GUAIFENESIN 600MG ER TABLET PO SCH ×2 (08:28→21:40)
[2022-06-15] MEDS: ENOXAPARIN 40MG/0.4ML SYR SUBCUT SCH (08:28)
[2022-06-15] MEDS: ACETAMINOPHEN 650MG/20.3ML UDC PO PRN (21:40)
[2022-06-16] VITALS (12 sets, daily range): BP systolic 109–175; BP diastolic 69–115
[2022-06-16] MEDS: IPRATROPIUM/ALBUTEROL 0.5-3(2.5)MG/3ML NEB HHN SCH ×2 (00:45→09:27)
[2022-06-16] MEDS: DEXTROSE 5% WATER 1,000 ML IV SCH (03:30)
[2022-06-16] MEDS: PIPERACILLIN/TAZOBACTAM 3.375 G in DEXTROSE 5% WATER 50 ML IV SCH ×3 (06:00→21:38)
[2022-06-16] MEDS: AMLODIPINE 5MG TABLET PO SCH (13:54)
[2022-06-16] MEDS: ACETAMINOPHEN 650MG/20.3ML UDC PO PRN (13:55)
[2022-06-16] MEDS: POTASSIUM-SODIUM PHOSPHATE POWDER PACKET PO SCH ×2 (13:55→18:20)
[2022-06-16] MEDS: MAGNESIUM OXIDE 400MG TABLET NG SCH ×2 (13:55→18:19)
[2022-06-16] MEDS: GUAIFENESIN 600MG ER TABLET PO SCH ×2 (13:55→21:38)
[2022-06-16] MEDS: DOCUSATE SODIUM SUGAR FREE 100MG/10ML UDC NG SCH (13:55)
[2022-06-16] MEDS: CARVEDILOL 6.25 MG TABLET PO SCH (21:40)
[2022-06-17] VITALS (15 sets, daily range): BP systolic 116–178; BP diastolic 72–122
[2022-06-17] MEDS: IPRATROPIUM/ALBUTEROL 0.5-3(2.5)MG/3ML NEB HHN SCH ×4 (02:00→20:32)
[2022-06-17] MEDS: PIPERACILLIN/TAZOBACTAM 3.375 G in DEXTROSE 5% WATER 50 ML IV SCH ×3 (05:39→21:11)
[2022-06-17 07:15] LABS: BASOPHILS % 0.5 % (0.0-2.0); EOSINOPHILS % 0.5 % (0.0-5.0); HEMATOCRIT. 32.6 % (42.0-52.0); HEMOGLOBIN. 10.8 g/dL (14.0-18.0); LYMPHOCYTES % 10.9 % (20.0-50.0); MEAN CORPUSCULAR HEMOGLOBIN 27.9 pg (28.0-32.0); MEAN CORPUSCULAR VOLUME 84.3 fL (80.0-94.0); MEAN PLATELET VOLUME 8.3 fl (7.4-10.4); MONOCYTES % 6.6 % (2.0-8.0); NEUTROPHILS % 81.5 % (40.0-76.0); PLATELET 353 x1000/uL (130-400); RED BLOOD CELL COUNT 3.87 mill/uL (4.7-6.1); RED CELL DISTRIBUTION WIDTH 14.9 % (11.6-14.6)
[2022-06-17 08:14] LABS: CHLORIDE 114 mEq/L (98-107)
[2022-06-17] MEDS: DOCUSATE SODIUM SUGAR FREE 100MG/10ML UDC NG SCH (08:32)
[2022-06-17] MEDS: CARVEDILOL 6.25 MG TABLET PO SCH (08:32)
[2022-06-17] MEDS: ENOXAPARIN 40MG/0.4ML SYR SUBCUT SCH (08:33)
[2022-06-17] MEDS: POTASSIUM-SODIUM PHOSPHATE POWDER PACKET PO SCH ×2 (08:33→16:55)
[2022-06-17] MEDS: MAGNESIUM OXIDE 400MG TABLET NG SCH ×2 (08:33→16:56)
[2022-06-17] MEDS: GUAIFENESIN 600MG ER TABLET PO SCH ×2 (08:34→20:22)
[2022-06-17] MEDS: AMLODIPINE 5MG TABLET PO SCH (08:36)
[2022-06-17] MEDS: CARVEDILOL 12.5MG TABLET PO SCH (20:23)
[2022-06-17] MEDS: ACETAMINOPHEN 650MG/20.3ML UDC PO PRN (20:23)
[2022-06-18] VITALS (12 sets, daily range): BP systolic 92–164; BP diastolic 51–94
[2022-06-18] MEDS: DEXTROSE 5% WATER 1,000 ML IV SCH ×2 (02:20→17:33)
[2022-06-18] MEDS: IPRATROPIUM/ALBUTEROL 0.5-3(2.5)MG/3ML NEB HHN SCH ×4 (03:02→21:44)
[2022-06-18] MEDS: PIPERACILLIN/TAZOBACTAM 3.375 G in DEXTROSE 5% WATER 50 ML IV SCH ×3 (05:21→21:04)
[2022-06-18] MEDS: AMLODIPINE 5MG TABLET PO SCH (08:53)
[2022-06-18] MEDS: CARVEDILOL 12.5MG TABLET PO SCH ×2 (08:53→21:04)
[2022-06-18] MEDS: MAGNESIUM OXIDE 400MG TABLET NG SCH ×2 (08:53→16:50)
[2022-06-18] MEDS: DOCUSATE SODIUM SUGAR FREE 100MG/10ML UDC NG SCH (08:53)
[2022-06-18] MEDS: POTASSIUM-SODIUM PHOSPHATE POWDER PACKET PO SCH ×2 (08:53→16:50)
[2022-06-18] MEDS: GUAIFENESIN 600MG ER TABLET PO SCH ×2 (08:53→21:03)
[2022-06-18] MEDS: ENOXAPARIN 40MG/0.4ML SYR SUBCUT SCH (08:54)
[2022-06-18] MEDS ORDERED: POTASSIUM-SODIUM PHOSPHATE POWDER PACKET PO SCH ×2 (11:15)
[2022-06-18 13:06] LABS: BASOPHILS % 0.6 % (0.0-2.0); EOSINOPHILS % 0.4 % (0.0-5.0); HEMATOCRIT. 34.6 % (42.0-52.0); HEMOGLOBIN. 10.9 g/dL (14.0-18.0); LYMPHOCYTES % 10.2 % (20.0-50.0); MEAN CORPUSCULAR VOLUME 85.7 fL (80.0-94.0); MEAN PLATELET VOLUME 7.9 fl (7.4-10.4); MONOCYTES % 5.7 % (2.0-8.0); NEUTROPHILS % 83.1 % (40.0-76.0); PLATELET 400 x1000/uL (130-400); RED BLOOD CELL COUNT 4.04 mill/uL (4.7-6.1); RED CELL DISTRIBUTION WIDTH 14.8 % (11.6-14.6)
[2022-06-18] MEDS: ACETAMINOPHEN 650MG/20.3ML UDC PO PRN (21:03)
[2022-06-19] VITALS (12 sets, daily range): BP systolic 102–150; BP diastolic 64–111
[2022-06-19] MEDS: IPRATROPIUM/ALBUTEROL 0.5-3(2.5)MG/3ML NEB HHN SCH ×4 (02:31→20:07)
[2022-06-19 06:44] LABS: PHOSPHORUS 3.7 mg/dL (2.5-4.9)
[2022-06-19 07:03] LABS: BASOPHILS % 0.2 % (0.0-2.0); EOSINOPHILS % 0.4 % (0.0-5.0); HEMATOCRIT. 33.3 % (42.0-52.0); HEMOGLOBIN. 10.8 g/dL (14.0-18.0); LYMPHOCYTES % 11.7 % (20.0-50.0); MEAN CORPUSCULAR HEMOGLOBIN 27.6 pg (28.0-32.0); MEAN CORPUSCULAR VOLUME 85.2 fL (80.0-94.0); MEAN PLATELET VOLUME 8.3 fl (7.4-10.4); MONOCYTES % 5.6 % (2.0-8.0); NEUTROPHILS % 82.1 % (40.0-76.0); PLATELET 387 x1000/uL (130-400); RED CELL DISTRIBUTION WIDTH 14.9 % (11.6-14.6)
[2022-06-19] MEDS: MAGNESIUM OXIDE 400MG TABLET NG SCH ×2 (08:50→17:49)
[2022-06-19] MEDS: DOCUSATE SODIUM SUGAR FREE 100MG/10ML UDC NG SCH (08:50)
[2022-06-19] MEDS: POTASSIUM-SODIUM PHOSPHATE POWDER PACKET PO SCH ×2 (08:51→17:49)
[2022-06-19] MEDS: AMLODIPINE 5MG TABLET PO SCH (08:52)
[2022-06-19] MEDS: ENOXAPARIN 40MG/0.4ML SYR SUBCUT SCH (08:53)
[2022-06-19] MEDS: CARVEDILOL 12.5MG TABLET PO SCH ×2 (08:54→20:41)
[2022-06-19] MEDS: GUAIFENESIN 600MG ER TABLET PO SCH (09:00)
[2022-06-19] MEDS: DEXTROSE 5% WATER 1,000 ML IV SCH (12:18)
[2022-06-20] VITALS (12 sets, daily range): BP systolic 105–153; BP diastolic 68–101
[2022-06-20] MEDS: IPRATROPIUM/ALBUTEROL 0.5-3(2.5)MG/3ML NEB HHN SCH ×4 (00:50→18:00)
[2022-06-20] MEDS: ACETYLCYSTEINE 100MG/ML 10% VIAL 4ML INH SCH ×2 (00:51→22:00)
[2022-06-20 07:23] LABS: BASOPHILS % 0.3 % (0.0-2.0); EOSINOPHILS % 0.3 % (0.0-5.0); HEMATOCRIT. 33.3 % (42.0-52.0); HEMOGLOBIN. 10.7 g/dL (14.0-18.0); MEAN CORPUSCULAR HEMOGLOBIN 27.6 pg (28.0-32.0); MEAN CORPUSCULAR VOLUME 85.5 fL (80.0-94.0); MEAN PLATELET VOLUME 8.2 fl (7.4-10.4); MONOCYTES % 4.5 % (2.0-8.0); NEUTROPHILS % 81.9 % (40.0-76.0); PLATELET 389 x1000/uL (130-400); RED BLOOD CELL COUNT 3.89 mill/uL (4.7-6.1); RED CELL DISTRIBUTION WIDTH 15.1 % (11.6-14.6)
[2022-06-20 07:24] LABS: CHLORIDE 111 mEq/L (98-107)
[2022-06-20 07:36] LABS: PHOSPHORUS 3.1 mg/dL (2.5-4.9)
[2022-06-20] MEDS: POTASSIUM-SODIUM PHOSPHATE POWDER PACKET PO SCH ×2 (08:38→17:07)
[2022-06-20] MEDS: DOCUSATE SODIUM SUGAR FREE 100MG/10ML UDC NG SCH (08:38)
[2022-06-20] MEDS: CARVEDILOL 12.5MG TABLET PO SCH ×2 (08:39→20:35)
[2022-06-20] MEDS: ENOXAPARIN 40MG/0.4ML SYR SUBCUT SCH (08:39)
[2022-06-20] MEDS: AMLODIPINE 5MG TABLET PO SCH (08:39)
[2022-06-20] MEDS: MAGNESIUM OXIDE 400MG TABLET NG SCH ×2 (08:42→17:07)
[2022-06-21] VITALS (12 sets, daily range): BP systolic 94–150; BP diastolic 67–94
[2022-06-21] MEDS: ACETYLCYSTEINE 100MG/ML 10% VIAL 4ML INH SCH ×3 (01:16→14:10)
[2022-06-21 06:38] LABS: BASOPHILS % 0.2 % (0.0-2.0); EOSINOPHILS % 0.3 % (0.0-5.0); HEMATOCRIT. 33.8 % (42.0-52.0); HEMOGLOBIN. 10.9 g/dL (14.0-18.0); LYMPHOCYTES % 11.8 % (20.0-50.0); MEAN CORPUSCULAR HEMOGLOBIN 27.7 pg (28.0-32.0); MEAN CORPUSCULAR VOLUME 85.7 fL (80.0-94.0); MEAN PLATELET VOLUME 8.1 fl (7.4-10.4); MONOCYTES % 5.7 % (2.0-8.0); PLATELET 374 x1000/uL (130-400); RED BLOOD CELL COUNT 3.94 mill/uL (4.7-6.1); RED CELL DISTRIBUTION WIDTH 15.2 % (11.6-14.6)
[2022-06-21 06:51] LABS: CHLORIDE 111 mEq/L (98-107)
[2022-06-21 06:57] LABS: PHOSPHORUS 2.6 mg/dL (2.5-4.9)
[2022-06-21] MEDS: AMLODIPINE 2.5MG TABLET PO SCH (08:25)
[2022-06-21] MEDS: MAGNESIUM OXIDE 400MG TABLET NG SCH ×2 (08:25→17:44)
[2022-06-21] MEDS: DOCUSATE SODIUM SUGAR FREE 100MG/10ML UDC NG SCH (08:25)
[2022-06-21] MEDS: CARVEDILOL 12.5MG TABLET PO SCH ×2 (08:26→21:20)
[2022-06-21] MEDS: POTASSIUM-SODIUM PHOSPHATE POWDER PACKET PO SCH ×2 (08:26→17:44)
[2022-06-21] MEDS: ENOXAPARIN 40MG/0.4ML SYR SUBCUT SCH (08:28)
[2022-06-21] MEDS: IPRATROPIUM/ALBUTEROL 0.5-3(2.5)MG/3ML NEB HHN SCH ×4 (08:30→20:53)
[2022-06-21] MEDS: ACETAMINOPHEN 650MG/20.3ML UDC PO PRN (15:40)
[2022-06-22] VITALS (12 sets, daily range): BP systolic 92–150; BP diastolic 65–117
[2022-06-22] MEDS: IPRATROPIUM/ALBUTEROL 0.5-3(2.5)MG/3ML NEB HHN SCH ×2 (01:16→08:30)
[2022-06-22] MEDS: ACETYLCYSTEINE 100MG/ML 10% VIAL 4ML INH SCH (08:28)
[2022-06-22] MEDS: POTASSIUM-SODIUM PHOSPHATE POWDER PACKET PO SCH (09:14)
[2022-06-22] MEDS: ENOXAPARIN 40MG/0.4ML SYR SUBCUT SCH (09:14)
[2022-06-22] MEDS: DOCUSATE SODIUM SUGAR FREE 100MG/10ML UDC NG SCH (09:14)
[2022-06-22] MEDS: CARVEDILOL 12.5MG TABLET PO SCH (09:15)
[2022-06-22] MEDS: AMLODIPINE 2.5MG TABLET PO SCH (09:16)
[2022-06-22] MEDS: MAGNESIUM OXIDE 400MG TABLET NG SCH (09:47)
== END 2022-06-22 13:30 | disposition short-term general hospital (02) | DRG 4 ==
LOC: ER 21:02 → MICUSO 05-08 01:38 → CVICU 05-08 17:12 → 5EST 05-23 15:35
PROVIDERS: ADMIT Internal Medicine Pulmonary Disease; ATTEND Internal Medicine Pulmonary Disease
PROC: 5A1955Z Respiratory Ventilation, Greater than 96 Consecutive Hours (ICD-10-PCS; principal; 2022-05-08)
PROC: 5A09357 Assistance with Respiratory Ventilation, Less than 24 Consecutive Hours, Continuous Positive Airway Pressure (ICD-10-PCS; 2022-05-08)
PROC: 0BH17EZ Insertion of Endotracheal Airway into Trachea, Via Natural or Artificial Opening (ICD-10-PCS; 2022-05-08)
PROC: 4A00X4Z Measurement of Central Nervous Electrical Activity, External Approach (ICD-10-PCS; 2022-05-10)
PROC: 02HV33Z Insertion of Infusion Device into Superior Vena Cava, Percutaneous Approach (ICD-10-PCS; 2022-05-13)
PROC: B548ZZA Ultrasonography of Superior Vena Cava, Guidance (ICD-10-PCS; 2022-05-13)
PROC: 0B110F4 Bypass Trachea to Cutaneous with Tracheostomy Device, Open Approach (ICD-10-PCS; 2022-05-20)
PROC: 0DB78ZX Excision of Stomach, Pylorus, Via Natural or Artificial Opening Endoscopic, Diagnostic (ICD-10-PCS; 2022-05-31)
PROC: 0DH63UZ Insertion of Feeding Device into Stomach, Percutaneous Approach (ICD-10-PCS; 2022-05-31)
DX: A41.59 Other Gram-negative sepsis (principal); G82.50 Quadriplegia, unspecified; G83.5 Locked-in state; J96.01 Acute respiratory failure with hypoxia; R65.21 Severe sepsis with septic shock; J69.0 Pneumonitis due to inhalation of food and vomit; E87.2 Acidosis; E87.0 Hyperosmolality and hypernatremia; G93.40 Encephalopathy, unspecified; N17.9 Acute kidney failure, unspecified; N39.0 Urinary tract infection, site not specified; J95.851 Ventilator associated pneumonia; Z99.11 Dependence on respirator [ventilator] status; I69.351 Hemiplegia and hemiparesis following cerebral infarction affecting right dominant side; I10 Essential (primary) hypertension; E87.6 Hypokalemia; E87.5 Hyperkalemia; D64.9 Anemia, unspecified; E83.39 Other disorders of phosphorus metabolism; I25.10 Atherosclerotic heart disease of native coronary artery without angina pectoris; K29.50 Unspecified chronic gastritis without bleeding; N13.9 Obstructive and reflux uropathy, unspecified; R13.12 Dysphagia, oropharyngeal phase; T38.0X5A Adverse effect of glucocorticoids and synthetic analogues, initial encounter; E66.9 Obesity, unspecified; R77.8 Other specified abnormalities of plasma proteins; F32.A Depression, unspecified; F41.9 Anxiety disorder, unspecified; E78.2 Mixed hyperlipidemia; R00.0 Tachycardia, unspecified; R60.1 Generalized edema; Z20.822 Contact with and (suspected) exposure to COVID-19; Z68.26 Body mass index [BMI] 26.0-26.9, adult; Z82.49 Family history of ischemic heart disease and other diseases of the circulatory system; Y92.89 Other specified places as the place of occurrence of the external cause
CPT/HCPCS: 31500; 36415; 36573; 36600; 70490; 70551; 71045; 71250; 71275; 74018; 76705; 76770; 80048; 80053; 80202; 80305; 81003; 82375; 82550; 82805; 82962; 83605; 83735; 83880; 83935; 84100; 84145; 84443; 84478; 84484; 85025; 85379; 87070; 87077; 87186; 87426; 88305; 88312; 88313; 90732; 92610; 93005; 93306; 93970; 94002; 94003; 94640; 94660; 95816; 99291; C1725; C9113; J0330; J0360; J0690; J0692; J0696; J1100; J1650; J2250; J2270; J2370; J2405; J2543; J2704; J2765; J2920; J3010; J3370; J3475; J3480; J3490; J7050; J7060; J7070; J7608; Q9967; A4315